=== PATIENT | female | born 2000 | race Caucasian/White ===

== ENCOUNTER → 2021-06-23 09:53 | Outpatient (CLI) | payer OTHER, SELFPAY | PROVIDERS: Visit Provider Nurse Practitioner | DX: Z20.822 Contact with and (suspected) exposure to COVID-19 (principal) | CPT/HCPCS: C9803; U0003; U0005 ==

== ENCOUNTER → 2021-07-21 08:20 | Outpatient (CLI) | payer OTHER, SELFPAY | PROVIDERS: Visit Provider Nurse Practitioner | DX: Z20.822 Contact with and (suspected) exposure to COVID-19 (principal) | CPT/HCPCS: C9803; U0003; U0005 ==

== ENCOUNTER → 2021-10-28 08:18 | Outpatient (CLI) | payer OTHER, SELFPAY | PROVIDERS: Visit Provider Nurse Practitioner | DX: U07.1 COVID-19 (principal) | CPT/HCPCS: C9803; U0003; U0005 ==

== ENCOUNTER → 2021-12-14 16:31 | Outpatient (CLI) | payer BC, SELFPAY ==
[2021-12-14 14:42] LABS: Basophils % 0.7 % (0.1-2.0); Eosinophils # 0.2 K/mm3 (0.0-0.4); Eosinophils % 2.7 % (0.1-12.0); Hematocrit 43.5 % (37.0-47.0); Hemoglobin 14.3 g/dL (12.2-16.2); Lymphocytes # 2.1 K/mm3 (0.7-4.5); Lymphocytes % 33.2 % (10-50); Mean Corpuscular HGB Conc 32.9 g/dL (31.8-35.4); Mean Corpuscular Hemoglobin 30.2 pg (27.0-31.2); Mean Corpuscular Volume 91.7 fl (81-99); Mean Platelet Volume 9.1 fl (7.4-10.4); Monocytes # 0.4 K/mm3 (0.1-1.0); Monocytes % 6.6 % (1.7-9.3); Neutrophils # 3.6 K/mm3 (1.8-7.8); Neutrophils % 56.9 % (37.0-80.0); Platelet Count 331 K/mm3 (142-424); Red Blood Count 4.75 M/mm3 (4.20-5.40); Red Cell Distribution Width 13.1 % (11.5-17.5); White Blood Count 6.4 K/mm3 (4.8-10.8)
[2021-12-14 15:50] LABS: Alanine Aminotransferase 33 U/L (12-78); Albumin Level 4.6 g/dl (3.5-5.0); Albumin/Globulin Ratio 1.6 (1.1-1.8); Alkaline Phosphatase 56 U/L (38-126); Anion Gap 13.2 mEq/L (5-15); Aspartate Amino Transferase 43 U/L (14-36); Bilirubin,Total 0.5 mg/dl (0.2-1.3); Blood Urea Nitrogen 7 mg/dl (7-17); Calcium 9.7 mg/dl (8.4-10.2); Carbon Dioxide 24 mmol/L (22.0-30.0); Chloride 108 mmol/L (98-107); Chol/HDL Ratio 2.1 (1-3.5); Cholesterol 150 mg/dl (140-200); Estimated Glomerular Filt Rate 125 ml/min (>60); GFR (African American) 151 ML/MIN (>60); Globulin 2.8 g/dL (1.3-3.2); Glucose 86 mg/dl (74-100); HDL Cholesterol 71 mg/dl (40-60); Potassium 4.2 mmoL/L (3.5-5.1); Sodium 141 mmol/L (136-145); Total Protein,Serum 7.4 g/dl (6.3-8.2); Triglycerides 73 mg/dl (30-150); VLDL Cholesterol 15 mg/dL (0-40)
[2021-12-14 16:01] LABS: Direct LDL Cholesterol 38.62 mg/dL (100-129)
[2021-12-14 16:05] LABS: Free T4 (Free Thyroxine) 1.28 ng/dl (0.78-2.19)
[2021-12-14 16:07] LABS: 25-OH Vitamin D, Total 36.2 ng/mL (30-100)
[2021-12-14 16:19] LABS: Thyroid Stimulating Hormone 1.78 uIU/mL (0.465-4.68)
== END ==
PROVIDERS: Visit Provider Emergency Medicine
DX: R63.5 Abnormal weight gain (principal); E55.9 Vitamin D deficiency, unspecified
CPT/HCPCS: 80053; 80061; 82306; 84439; 84443; 85025

== ENCOUNTER 2022-08-11 09:38 | Emergency (ER) | payer BC, SELFPAY ==
--- NOTE | 2022-08-11 10:46 | EXP.UTC ---
Discharge Plan Disposition Patient Disposition: Home, Self-Care Condition: Good Prescriptions Prescriptions: New azithromycin [Zithromax] 250 mg tablet 250 mg PO UD DOSE PK Qty: 6 0RF Rx Instructions: Take two (2) tablets today, then one (1) tablet days #2 thru #5 [id number] [Bromfed DM] 2-30-10 mg/5 mL Syrup 5 ml PO Q6H PRN (Reason: Cough) Qty: 240 0RF No Action fluoxetine [Prozac] 20 mg capsule 20 mg PO DAILY Qty: 90 4RF metformin 500 mg tablet 500 mg PO DAILY Qty: 90 3RF Referrals Follow up/Referrals: Edin Ackerman MD [Primary Care Provider] - See instructions Activity Restrictions/Add. Instructions Additional Instructions/Restrictions: Drink plenty of fluids. Take tylenol or ibuprofen for pain or fever. Take the medications as directed. Follow up with your regular doctor. GO TO THE ER FOR ANY WORSENING SYMPTOMS Clinical Impressions Clinical Impression: Pharyngitis Instructions Patient Instructions: Strep Throat, DI for Strep Throat Discharge ED Provider: Jax Mackay [facility] General Stated complaint: Sore throat, strep test Time Seen by Provider: 08/11/22 10:46 History of Present Illness Provider Complaint: She states that for the past 2 weeks she has had a sore throat and sinus congestion. She wants to be checked for strep throat. 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 Related Data Previous Rx's Medication Instructions Recorded fluoxetine 20 mg capsule (Prozac) 20 mg PO DAILY #90 caps 05/13/22 metformin 500 mg tablet 500 mg PO DAILY #90 tabs 05/13/22 azithromycin 250 mg tablet 250 mg PO UD DOSE PK #6 tabs 08/11/22 (Zithromax) [id number]-yfldqitmvrttkhc-FJ 5 ml PO Q6H PRN Cough #240 mL 08/11/22 2 mg-30 mg-10 mg/5 mL oral syrup (Bromfed DM) Allergies Allergy/AdvReac Type Severity Reaction Status Date / Time No Known Allergies Allergy Verified 08/11/22 11:04 [facility] Social History Smoking Status: Never smoker alcohol intake: current substance use type: denies use current occupational status: employed Travel in the last 8 weeks: None ROS Obtained: Yes All systems reviewed & no additional complaints except as documented Constitutional Constitutional: Reports chills and Denies fever(s) Eyes Eyes: Denies eye discharge ENT Ears, Nose, Mouth, and Throat: Reports as per HPI Cardiovascular Cardiovascular: Denies chest pain Respiratory Respiratory: Denies chest congestion and Reports cough Gastrointestinal Gastrointestingal: Reports nausea; Denies abdominal pain, constipation, cramping, diarrhea or vomiting Musculoskeletal Musculoskeletal: Denies arthralgias Integumentary/Breasts Skin/Breast: Denies rash Neurologic Neurologic: Denies paresthesias Physical Exam General General appearance: alert and in no apparent distress Head Head exam: atraumatic, normocephalic and normal inspection Eye Eye exam: Present normal appearance, PERRL and EOMI ENT ENT exam: Present mucous membranes moist and normal external ear exam Expanded ENT Exam TM/Canal exam: Bilateral TM: erythema and bulging Nose exam: Absent sinus tenderness Mouth exam: Present normal external inspection; Absent drooling Teeth exam: Present normal inspection Throat exam: Present tonsillar erythema, tonsillomegaly and tonsillar exudate Neck Neck exam: Present normal inspection, full ROM and trachea midline; Absent tenderness, meningismus or lymphadenopathy Chest Chest inspection: Present normal inspection and symmetric chest wall rise; Absent tenderness Respiratory Respiratory exam: Present normal lung sounds bilaterally; Absent respiratory distress, wheezes or stridor Cardiovascular Cardiovascular exam: Present regular rate and normal rhythm; Absent systolic murmur or diastolic murmur Abdominal Exam Abdominal exam: Present soft and normal bowel sounds; Absent dis
[2022-08-11 11:03] VITALS: BP 122/73; PULSE 72; RESP 18; TEMP 36.7; O2SAT 99; BMI 24.2
[2022-08-11 11:05] LABS: UTC Strep Screen (Rapid) Negative (Negative)
[2022-08-11 11:17] LABS: Adenovirus,PCR Not Detected (NotDetected); Bordetella Pertussis Not Detected (NotDetected); Chlamydophila Pneumoniae, PCR Not Detected (NotDetected); Coronavirus 19, PCR Not Detected (NotDetected); Coronavirus 229E Not Detected (NotDetected); Coronavirus NL63 Not Detected (NotDetected); Coronavirus OC43 Not Detected (NotDetected); Coronovirus HKU1,PCR Not Detected (NotDetected); Human Metapneumovirus Not Detected (NotDetected); Influenza A, PCR Not Detected (NotDetected); Influenza AH1, 2009 Not Detected (NotDetected); Influenza AH1, PCR Not Detected (NotDetected); Influenza AH3,PCR Not Detected (NotDetected); Influenza B, PCR Not Detected (NotDetected); Mycoplasma Pneumoniae, PCR Not Detected (NotDetected); Parainfluenza 1, PCR Not Detected (NotDetected); Parainfluenza 2, PCR Not Detected (NotDetected); Parainfluenza 3, PCR Not Detected (NotDetected); Parainfluenza 4, PCR Not Detected (NotDetected); Rhinovirus/Enterovirus Not Detected (NotDetected)
[2022-08-11 11:45] VITALS: BP 122/73; PULSE 72; RESP 18; TEMP 36.7
[2022-08-11 19:41] LABS: Respiratory Syncytial Virus Detected (NotDetected)
== END 2022-08-11 11:46 | disposition home or self-care (01) ==
PROVIDERS: Emergency Provider Nurse Practitioner Family; PCP Emergency Medicine
DX: J02.9 Acute pharyngitis, unspecified (principal); R09.89 Other specified symptoms and signs involving the circulatory and respiratory systems; B34.8 Other viral infections of unspecified site
CPT/HCPCS: 87581; 87632; 87798; 87880; 99212; C9803; G0463; U0003; U0005

== ENCOUNTER 2022-08-22 11:42 | Emergency (ER) | payer BC, SELFPAY ==
[2022-08-22 12:57] VITALS: BP 0/0; PULSE 0; RESP 0; TEMP -17.7; TEMP 0
== END 2022-08-22 12:58 | disposition left against medical advice (07) ==
LOC: UTC 11:44
PROVIDERS: Emergency Provider Nurse Practitioner Family; PCP Emergency Medicine
DX: Z03.89 Encounter for observation for other suspected diseases and conditions ruled out (principal); Z79.84 Long term (current) use of oral hypoglycemic drugs; Z79.899 Other long term (current) drug therapy; Z53.21 Procedure and treatment not carried out due to patient leaving prior to being seen by health care provider

== ENCOUNTER 2022-10-15 11:35 | Emergency (ER) | payer BC, SELFPAY ==
--- NOTE | 2022-10-15 11:39 | EXP.UTC ---
Discharge Plan Disposition Patient Disposition: Home, Self-Care Condition: Good Prescriptions Prescriptions: New prednisone 10 mg tablet 10 mg PO BID 3 Days Qty: 6 0RF amoxicillin [amoxicillin] 500 mg tablet 500 mg PO TID 10 Days Qty: 30 0RF fmjlwthlolijdjf-kdmikliwx-JK [Bromfed DM] 2-30-10 mg/5 mL Syrup 5 ml PO Q6H PRN (Reason: Cough) Qty: 240 0RF No Action fluoxetine [Prozac] 20 mg capsule 20 mg PO DAILY Qty: 90 4RF metformin 500 mg tablet 500 mg PO DAILY Qty: 90 3RF azithromycin [Zithromax] 250 mg tablet 250 mg PO UD DOSE PK Qty: 6 0RF Rx Instructions: Take two (2) tablets today, then one (1) tablet days #2 thru #5 rcalpukvyzihodz-tqzeiqatp-CV [Bromfed DM] 2-30-10 mg/5 mL Syrup 5 ml PO Q6H PRN (Reason: Cough) Qty: 240 0RF Referrals Follow up/Referrals: Edin Ackerman MD [Primary Care Provider] - See instructions Activity Restrictions/Add. Instructions Additional Instructions/Restrictions: Drink plenty of fluids. Take tylenol or ibuprofen for pain or fever. Take the medications as directed. Follow up with your regular doctor. GO TO THE ER FOR ANY WORSENING SYMPTOMS Clinical Impressions Clinical Impression: Pharyngitis Instructions Patient Instructions: DI for Pharyngitis/Tonsillopharyngitis -- Adult Discharge ED Provider: Jax Mackay [facility] General Stated complaint: Sore throat, bodyaches Time Seen by Provider: 10/15/22 11:39 History of Present Illness Provider Complaint: She states that for the past 5 days she has had a sore throat, dry cough, ear pain and she has felt bad. Related Data Previous Rx's Medication Instructions Recorded fluoxetine 20 mg capsule (Prozac) 20 mg PO DAILY #90 caps 05/13/22 metformin 500 mg tablet 500 mg PO DAILY #90 tabs 05/13/22 azithromycin 250 mg tablet 250 mg PO UD DOSE PK #6 tabs 08/11/22 (Zithromax) rgdmygjuidxzxop-ztygacbqrgjreou-IF 5 ml PO Q6H PRN Cough #240 mL 08/11/22 2 mg-30 mg-10 mg/5 mL oral syrup (Bromfed DM) amoxicillin 500 mg tablet 500 mg PO TID 10 days #30 tabs 10/15/22 hpoohoklrooupis-hbsvnyexoqbitsl-QL 5 ml PO Q6H PRN Cough #240 mL 10/15/22 2 mg-30 mg-10 mg/5 mL oral syrup (Bromfed DM) prednisone 10 mg tablet 10 mg PO BID 3 days #6 tabs 10/15/22 Allergies Allergy/AdvReac Type Severity Reaction Status Date / Time No Known Allergies Allergy Verified 08/11/22 11:04 [facility] Disclaimer: The information contained in this section may have been updated after the patient was seen, as this information can be updated by other users. Medical History Anxiety Depression Migraine Social History Smoking Status: Never smoker alcohol intake: current substance use type: denies use current occupational status: employed Travel in the last 8 weeks: None ROS Obtained: Yes All systems reviewed & no additional complaints except as documented Constitutional Constitutional: Reports chills and Reports fever(s) Eyes Eyes: Denies eye discharge ENT Ears, Nose, Mouth, and Throat: Reports as per HPI Cardiovascular Cardiovascular: Denies chest pain Respiratory Respiratory: Denies chest congestion and Reports cough Gastrointestinal Gastrointestingal: Reports nausea; Denies abdominal pain, constipation, cramping, diarrhea or vomiting Musculoskeletal Musculoskeletal: Denies arthralgias Integumentary/Breasts Skin/Breast: Denies rash Neurologic Neurologic: Denies paresthesias Physical Exam General General appearance: alert and in no apparent distress Head Head exam: atraumatic, normocephalic and normal inspection Eye Eye exam: Present normal appearance, PERRL and EOMI ENT ENT exam: Present mucous membranes moist and normal external ear exam Expanded ENT Exam TM/Canal exam: Bilateral TM: erythema and bulging Nose exam: Absent sinus tenderness Mouth exam: Present no
[2022-10-15 12:05] VITALS: BP 137/68; PULSE 70; RESP 21; TEMP 37.2; O2SAT 97; BMI 25.8
[2022-10-15 12:40] LABS: UTC Influenza A Antigen Negative (Negative); UTC Strep Screen (Rapid) Negative (Negative)
[2022-10-15 12:41] LABS: UTC Influenza B Antigen Negative (Negative)
[2022-10-15 13:05] VITALS: BP 137/68; PULSE 70; RESP 21; TEMP 37.2; O2SAT 97
[2022-10-15 13:45] LABS: Monoscreen (Rapid) Negative (Negative)
== END 2022-10-15 13:15 | disposition home or self-care (01) ==
PROVIDERS: Emergency Provider Nurse Practitioner Family; PCP Emergency Medicine
DX: J02.9 Acute pharyngitis, unspecified (principal); R52 Pain, unspecified; R05.8 Other specified cough
CPT/HCPCS: 86318; 87804; 87880; 99212; 99213; C9803; G0463; U0003; U0005

== ENCOUNTER 2022-12-07 12:55 | Emergency (ER) | payer BC, SELFPAY ==
[2022-12-07 13:00] VITALS: BP 139/91; PULSE 91; RESP 20; TEMP 36.8; O2SAT 97; BMI 27.6
--- NOTE | 2022-12-07 13:13 | EXP.UTC ---
Discharge Plan Disposition Patient Disposition: Home, Self-Care Condition: Good Prescriptions Prescriptions: New penicillin V potassium 500 mg tablet 500 mg PO BID Qty: 20 0RF No Action metformin 500 mg tablet 500 mg PO DAILY Qty: 90 3RF fluoxetine [Prozac] 20 mg capsule 20 mg PO DAILY Referrals Follow up/Referrals: Edin Ackerman MD [Primary Care Provider] - See instructions Activity Restrictions/Add. Instructions Additional Instructions/Restrictions: *Monitor Temp, Over the counter Motrin or Tylenol as directed/as needed Tylenol every 4 hours and Motrin every 6 hours (as long as your family doctor has told you that you can take it) for fever or pain. and straight to ER if unable to lower temp less than 101.0 after medication given *Warm salt water gargles may help to soothe the throat *Throat Lozenges? *Warm fluids like tea with honey may help to soothe the throat? *Sleep elevated *Humidifier/Vaporizer *If you did not take Penicillin shot or was unable to, start taking antibiotic immediately and make sure that you take it for the FULL length of time although you should start to feel better in 24-48 hours *change toothbrush and toothpaste 24-48 hours after starting to take antibiotics so you do not reinfect yourself Monitor Temp. Tylenol and/or Ibuprofen as needed. ER if fever is no less than 101 despite alternating Tylenol and Ibuprofen * Encourage fluids, water, Gatorade, powerade, pedialyte if /toddler/or child *Cold fluids, popsicles and ice cream may feel good on his throat Follow up IMMEDIATELY for new or worsening symptoms or no Noticeable improvement over the next 48-72 hours. 911 for difficulty breathing or swallowing Clinical Impressions Clinical Impression: Strep throat Stand Alone Forms Stand Alone Forms: Work/School Release Instructions Patient Instructions: DI for Strep Throat Discharge ED Provider: Neva Reyes [facility] [place] HPI General Stated complaint: Sore throat, loss of voice, bodyaches Time Seen by Provider: 12/07/22 13:13 History of Present Illness Provider Complaint: Patient states that she woke up with sore throat and loss of voice State that hurts when she swallows Related Data Home Medications Medication Instructions Recorded Confirmed fluoxetine 20 mg capsule (Prozac) 20 mg PO DAILY Depression 12/07/22 12/07/22 Previous Rx's Medication Instructions Recorded metformin 500 mg tablet 500 mg PO DAILY #90 tabs 05/13/22 penicillin V potassium 500 mg 500 mg PO BID #20 tabs 12/07/22 tablet Allergies Allergy/AdvReac Type Severity Reaction Status Date / Time No Known Allergies Allergy Verified 12/07/22 13:15 [facility] Disclaimer: The information contained in this section may have been updated after the patient was seen, as this information can be updated by other users. Medical History Anxiety Depression Migraine Social History Smoking Status: Never smoker alcohol intake: current substance use type: denies use current occupational status: employed Travel in the last 8 weeks: None ROS Obtained: Yes All systems reviewed & no additional complaints except as documented and Yes Systems reviewed as appropriate & no additional complaints except as documented Constitutional Constitutional: Reports system reviewed and no additional complaints, except as documented and Reports as per HPI ENT Ears, Nose, Mouth, and Throat: Reports system reviewed and no additional complaints, except as documented, Reports as per HPI and Reports sore throat Cardiovascular Cardiovascular: Reports system reviewed and no additional complaints, except as documented and Reports as per HPI Respiratory Respiratory: Reports system reviewed and no additional complaints, except as documented and Reports as per HPI Gastrointestinal Gastr
[2022-12-07 13:14] LABS: UTC Strep Screen (Rapid) Positive (Negative)
[2022-12-07 13:46] VITALS: BP 139/91; PULSE 91; RESP 20; TEMP 36.8; O2SAT 97
== END 2022-12-07 13:45 | disposition home or self-care (01) ==
PROVIDERS: Emergency Provider Nurse Practitioner; PCP Emergency Medicine
DX: J02.0 Streptococcal pharyngitis (principal); M79.18 Myalgia, other site
CPT/HCPCS: 87880; 99212; 99214; G0463

== ENCOUNTER 2022-12-27 09:19 | Emergency (ER) | payer BC, SELFPAY ==
[2022-12-27 09:20] VITALS: BP 132/87; PULSE 92; RESP 20; TEMP 36.6; O2SAT 100; BMI 27.8
--- NOTE | 2022-12-27 09:41 | EXP.UTC ---
Discharge Plan Disposition Patient Disposition: Home, Self-Care Condition: Good Prescriptions Prescriptions: New fluticasone propionate [Flonase Allergy Relief] 50 mcg/actuation spray,suspension 1 spray intranasal DAILY Qty: 16 0RF Rx Instructions: administer into each nostril Referrals Follow up/Referrals: Edin Ackerman MD [Primary Care Provider] - See instructions Activity Restrictions/Add. Instructions Additional Instructions/Restrictions: *Monitor Temp, Over the counter Motrin or Tylenol as directed/as needed Tylenol every 4 hours and Motrin every 6 hours (as long as your family doctor has told you that you can take it) for fever or pain. and straight to ER if unable to lower temp less than 101.0 after medication given *Warm salt water gargles may help to soothe the throat *Throat Lozenges? *Warm fluids like tea with honey may help to soothe the throat? *Sleep elevated *Humidifier/Vaporizer Your throat swab was sent for culture. Those results are typically sent to your primary care. Be sure to follow up in 2-3 days with your family doctor/primary care physician if no improvement so they can review those result and treat if necessary. If you don?t have a primary care doctor, I recommend you get one but in the mean time, you will have to return to a walk in clinic Follow up IMMEDIATELY for new or worsening symptoms or no Noticeable improvement over the next 48-72 hours. 911 for difficulty breathing or swallowing Clinical Impressions Clinical Impression: Sore throat (viral) Stand Alone Forms Stand Alone Forms: Work/School Release Instructions Patient Instructions: Sore Throat Discharge ED Provider: Neva Reyes [facility] [place] HPI General Stated complaint: Sore throat Mode of Arrival: Ambulatory Source of Information: Patient Limitations: No Limitations Time Seen by Provider: 12/27/22 09:41 Description of Symptoms (Recalled from Triage Doc. by RN): Tested positive for strep 3 wks finished pen, and no relief HEENT Symptoms (Recalled from RN notes): Yes Resp Symptoms (Recalled from RN notes): No Skin Symptoms (Recalled from RN notes): No MS Symptoms (Recalled from RN notes): No Functional Status (Recalled from RN notes): n/a History of Present Illness Provider Complaint: Patient states that she was seen and treated for strep throat 3 weeks ago and has finished all her Penicillin but still having sore throat and hurting when she swallows States that she doesnt feel like it has helped Related Data Previous Rx's Medication Instructions Recorded fluticasone propionate 50 1 spray intranasal DAILY #16 grams 12/27/22 mcg/actuation nasal spray,suspension (Flonase Allergy Relief) Allergies Allergy/AdvReac Type Severity Reaction Status Date / Time No Known Allergies Allergy Verified 12/27/22 09:39 Worker's Comp Is this a Worker's Comp case?: No [facility] Disclaimer: The information contained in this section may have been updated after the patient was seen, as this information can be updated by other users. Medical History Anxiety Depression Migraine Social History Smoking Status: Never smoker alcohol intake: current substance use type: denies use current occupational status: employed Travel in the last 8 weeks: None ROS Obtained: Yes All systems reviewed & no additional complaints except as documented and Yes Systems reviewed as appropriate & no additional complaints except as documented ENT Ears, Nose, Mouth, and Throat: Reports system reviewed and no additional complaints, except as documented, Reports as per HPI, Denies nasal congestion, Denies nasal discharge and Reports sore throat Cardiovascular Cardiovascular: Reports system reviewed and no additional complaints, except as documented and Reports as per HPI Respiratory Respiratory: Reports s
[2022-12-27 10:00] LABS: UTC Strep Screen (Rapid) Negative (Negative)
[2022-12-27 10:16] VITALS: BP 132/87; PULSE 92; RESP 20; TEMP 36.6; O2SAT 100
== END 2022-12-27 10:15 | disposition home or self-care (01) ==
PROVIDERS: Emergency Provider Nurse Practitioner; PCP Emergency Medicine
DX: J02.8 Acute pharyngitis due to other specified organisms (principal); B34.9 Viral infection, unspecified
CPT/HCPCS: 87880; 99212; 99214; G0463

== ENCOUNTER 2023-06-24 16:51 | Emergency (ER) | payer BC, SELFPAY ==
--- NOTE | 2023-06-24 16:55 | EXP.UTC ---
Discharge Plan Disposition Patient Disposition: Home, Self-Care Condition: Good Prescriptions Prescriptions: No Action fluticasone propionate [Flonase Allergy Relief] 50 mcg/actuation spray,suspension 1 spray intranasal DAILY Qty: 16 0RF Rx Instructions: administer into each nostril Referrals Follow up/Referrals: Edin Ackerman MD [Primary Care Provider] - See instructions Clinical Impressions Clinical Impression: Malaise Instructions Patient Instructions: DI for COVID-19 (Suspected or Confirmed ) Discharge ED Provider: Slime Villalobos [facility] [place] HPI General Stated complaint: FEVER CHILLS SORE THROAT WANTS covid TEST Time Seen by Provider: 06/24/23 17:19 Description of Symptoms (Recalled from Triage Doc. by RN): Headache, fever, sore throat, chills, muscle soreness since last night. No fever. History of Present Illness Provider Complaint: Headache, fever, sore throat, chills, muscle soreness since last night. No fever. Onset (ago): day(s) Relieving factors: none Exacerbating factors: none Associated symptoms: headaches and malaise Treatments prior to arrival: none Related Data Previous Rx's Medication Instructions Recorded fluticasone propionate 50 1 spray intranasal DAILY #16 grams 12/27/22 mcg/actuation nasal spray,suspension (Flonase Allergy Relief) Allergies Allergy/AdvReac Type Severity Reaction Status Date / Time No Known Allergies Allergy Verified 12/27/22 09:39 [facility] Disclaimer: The information contained in this section may have been updated after the patient was seen, as this information can be updated by other users. Medical History Anxiety Depression Migraine Social History Smoking Status: Never smoker alcohol intake: current substance use type: denies use current occupational status: employed Travel in the last 8 weeks: None ROS Obtained: Yes All systems reviewed & no additional complaints except as documented and Yes Systems reviewed as appropriate & no additional complaints except as documented Constitutional Constitutional: Reports body ache, Reports chills, Reports fatigue, Reports headache(s) and Reports malaise ENT Ears, Nose, Mouth, and Throat: Reports system reviewed and no additional complaints, except as documented, Reports as per HPI, Reports headache(s), Denies nasal congestion, Denies nasal discharge and Reports sore throat Cardiovascular Cardiovascular: Reports system reviewed and no additional complaints, except as documented and Reports as per HPI Respiratory Respiratory: Reports system reviewed and no additional complaints, except as documented and Reports as per HPI Gastrointestinal Gastrointestingal: Reports system reviewed and no additional complaints, except as documented and as per HPI Genitourinary Female Genitourinary: Reports system reviewed and no additional complaints, except as documented and Reports as per HPI Neurologic Neurologic: Reports headache(s) Endocrine Endocrine: Reports fatigue Physical Exam General General appearance: alert and in no apparent distress Head Head exam: atraumatic, normocephalic and normal inspection Eye Eye exam: Present normal appearance, PERRL and EOMI ENT ENT exam: Present normal exam, normal oropharynx, mucous membranes moist, TM's normal bilaterally and normal external ear exam Neck Neck exam: Present normal inspection, full ROM and trachea midline; Absent meningismus or lymphadenopathy Chest Chest inspection: Present normal inspection and symmetric chest wall rise; Absent tenderness Respiratory Respiratory exam: Present normal lung sounds bilaterally; Absent respiratory distress Cardiovascular Cardiovascular exam: Present regular rate and normal rhythm; Absent JVD Abdominal Exam Abdominal exam: Present soft and normal bowel sounds; Absent distention, tenderness or guarding Ex
[2023-06-24 17:00] VITALS: BP 125/70; PULSE 127; RESP 22; TEMP 36.8; O2SAT 96; BMI 28.2
[2023-06-24 17:15] LABS: UTC Strep Screen (Rapid) Negative (Negative)
[2023-06-24 17:36] LABS: UTC Influenza A Antigen Negative (Negative)
[2023-06-24 17:37] VITALS: BP 125/70; PULSE 127; RESP 22; TEMP 36.8; O2SAT 96
[2023-06-24 17:37] LABS: UTC Influenza B Antigen Negative (Negative)
== END 2023-06-24 17:40 | disposition home or self-care (01) ==
PROVIDERS: Emergency Provider Physician Assistant; PCP Emergency Medicine
DX: R51.9 Headache, unspecified (principal); F41.9 Anxiety disorder, unspecified; F32.A Depression, unspecified
CPT/HCPCS: 87635; 87804; 87880; 99212; 99213; G0463

== ENCOUNTER 2023-08-22 17:02 | Emergency (ER) | payer BC, SELFPAY ==
[2023-08-22 17:40] VITALS: BP 140/84; PULSE 102; RESP 22; TEMP 37.1; O2SAT 99; BMI 28.7
--- NOTE | 2023-08-22 17:47 | EXP.UTC ---
Discharge Plan Disposition Patient Disposition: Home, Self-Care Condition: Good Prescriptions Prescriptions: No Action fluticasone propionate [Flonase Allergy Relief] 50 mcg/actuation spray,suspension 1 spray intranasal DAILY Qty: 16 0RF Rx Instructions: administer into each nostril Referrals Follow up/Referrals: Edin Ackeramn MD [Primary Care Provider] - See instructions Activity Restrictions/Add. Instructions Additional Instructions/Restrictions: *Monitor Temp, Over the counter Motrin or Tylenol as directed/as needed Tylenol every 4 hours and Motrin every 6 hours (as long as your family doctor has told you that you can take it) for fever or pain. and straight to ER if unable to lower temp less than 101.0 after medication given *Warm salt water gargles may help to soothe the throat *Throat Lozenges? *Warm fluids like tea with honey may help to soothe the throat? *Sleep elevated *Humidifier/Vaporizer Follow up IMMEDIATELY for new or worsening symptoms or no Noticeable improvement over the next 48-72 hours. 911 for difficulty breathing or swallowing You were tested for today for with COVID19 your test result should be back in the next 24hrs You may check your results on the [facility] If your COVID result is positive you must Quarantine for 5 days Clinical Impressions Clinical Impression: Viral syndrome Stand Alone Forms Stand Alone Forms: Work/School Release Instructions Patient Instructions: Sore Throat, DI for Viral Syndrome Discharge ED Provider: Neva Reyes [facility] [place] General Stated complaint: sore throat, sada Time Seen by Provider: 08/22/23 17:53 History of Present Illness Provider Complaint: Patient states that she started feeling bad last night with sore throat, bodyaches, chills and headache States today she wasnt feeling any better so she came in to get tested worried because she was having COVID symptoms Related Data Previous Rx's Medication Instructions Recorded fluticasone propionate 50 1 spray intranasal DAILY #16 grams 12/27/22 mcg/actuation nasal spray,suspension (Flonase Allergy Relief) Allergies Allergy/AdvReac Type Severity Reaction Status Date / Time No Known Allergies Allergy Verified 12/27/22 09:39 [facility] Disclaimer: The information contained in this section may have been updated after the patient was seen, as this information can be updated by other users. Medical History Anxiety Depression Migraine Social History Smoking Status: Never smoker alcohol intake: current substance use type: denies use current occupational status: employed Travel in the last 8 weeks: None ROS Obtained: Yes All systems reviewed & no additional complaints except as documented and Yes Systems reviewed as appropriate & no additional complaints except as documented Constitutional Constitutional: Reports system reviewed and no additional complaints, except as documented, Reports as per HPI, Reports body ache, Reports chills and Reports headache(s) ENT Ears, Nose, Mouth, and Throat: Reports system reviewed and no additional complaints, except as documented, Reports as per HPI, Reports headache(s), Reports nasal congestion and Reports sore throat Cardiovascular Cardiovascular: Reports system reviewed and no additional complaints, except as documented and Reports as per HPI Respiratory Respiratory: Reports system reviewed and no additional complaints, except as documented and Reports as per HPI Gastrointestinal Gastrointestingal: Reports system reviewed and no additional complaints, except as documented Musculoskeletal Musculoskeletal: Reports system reviewed and no additional complaints, except as documented and Reports as per HPI Neurologic Neurologic: Reports headache(s) Physical Exam General General a
[2023-08-22 18:00] VITALS: BP 140/84; PULSE 102; RESP 22; TEMP 37.1; O2SAT 99
== END 2023-08-22 18:04 | disposition home or self-care (01) ==
PROVIDERS: Emergency Provider Nurse Practitioner; PCP Emergency Medicine
DX: R07.0 Pain in throat (principal); R09.81 Nasal congestion; R51.9 Headache, unspecified; R68.83 Chills (without fever); B34.9 Viral infection, unspecified
CPT/HCPCS: 87635; 99212; 99213; G0463

== ENCOUNTER 2024-12-24 06:08 | Emergency (ER) | payer BC, SELFPAY ==
--- NOTE | 2024-12-24 06:14 | ED_ITS ---
Discharge Plan Disposition Patient Disposition: Home, Self-Care Condition: Good Prescriptions Prescriptions: New promethazine 25 mg tablet 25 mg PO Q6H PRN (Reason: nausea and vomiting) Qty: 12 1RF No Action PNV no.[id number] acid 28 mg iron- 800 mcg tablet 1 tab PO DAILY Qty: 90 3RF fluoxetine 20 mg capsule See Rx Instructions .ROUTE .COMPLEX Qty: 90 0RF Dose Instruction: TAKE 1 CAPSULE BY MOUTH DAILY Rx Instructions: TAKE 1 CAPSULE BY MOUTH DAILY needs an appt before anymore refills fluticasone propionate [Flonase Allergy Relief] 50 mcg/actuation spray,suspension 1 spray intranasal DAILY Qty: 16 0RF Rx Instructions: administer into each nostril Referrals Follow up/Referrals: Slime Villalobos PA [Primary Care Provider] - See instructions Activity Restrictions/Add. Instructions Additional Instructions/Restrictions: You were evaluated in the emergency department today. At this time, we feel you likely have gastroenteritis. Please chart picker your prescription for Phenergan and take as needed for nausea and vomiting. Eat a bland diet until your symptoms are resolved, such as bananas, rice, applesauce, or toast. Take Tylenol and ibuprofen at home as needed for pain/fever. Make sure you stay hydrated. Follow-up with your primary care provider for reassessment. Return to the emergency department for new or worsening symptoms. Clinical Impressions Clinical Impression: Nausea & vomiting Stand Alone Forms Stand Alone Forms: Work/School Release Instructions Patient Instructions: DI for Diarrhea and Traveler's Diarrhea -- Adult, DI for Nausea -- Adult, Nausea and Vomiting-Adult Print Language Print Language: Khmer Discharge ED Provider: Sandro Munoz General Adult HPI <Sandro Munoz MD - Last Filed: 12/24/24 06:55> General Chief complaint: Abdominal Pain Stated complaint: abd pain, vomiting Time Seen by Provider: 12/24/24 06:10 History of Present Illness HPI narrative: 23-year-old female who reports being otherwise healthy only on daily fluoxetine with no known drug allergies presents to the ER with complaints of nausea and vomiting for the last 4 hours. She states she has had constant intractable vomiting. Nonbloody, nonbilious. She states she has generalized abdominal discomfort without any local areas of pain. She reports she has not taken any medications prior to arrival but cannot keep down even a sip of water. She denies hematuria or dysuria. She is 4 months and has not yet had her first period. She is actively breast-feeding. She is worried about being dehydrated. No history of any abdominal surgeries. No fevers, chills, cough, congestion, diarrhea, constipation, or any other associated symptoms. Related Data Previous Rx's ?Medication ?Instructions ?Recorded fluticasone propionate 50 1 spray intranasal DAILY #16 grams 12/27/22 mcg/actuation nasal spray,suspension (Flonase Allergy Relief) vitamins no.121-iron 28 1 tab PO DAILY #90 tabs 09/08/23 mg-folic acid 800 mcg tablet fluoxetine 20 mg capsule See Rx Instructions .Route 09/20/24 .COMPLEX #90 caps promethazine 25 mg tablet 25 mg PO Q6H PRN nausea and 12/24/24 vomiting #12 tabs Allergies Allergy/AdvReac Type Severity Reaction Status Date / Time No Known Allergies Allergy Verified 12/27/22 09:39 [facility] <Sandro Munoz MD - Last Filed: 12/24/24 06:55> [facility] Disclaimer: The information contained in this section may have been updated after the patient was seen, as this information can be updated by other users. Medical History Anxiety Depression Migraine Social History Smoking Status: Never smoker alcohol intake: current alcohol intake frequency: a few times a week substance use type: denies use current occupational status: employed Travel in the last 8 weeks: None Have you lived/traveled outside US in past 30 days?: No Contact w/someone who lives/traveled outside US past 30 days?: No Exposure to someone with infectious disease in past 14 days?: No Do you have a fever (greater than 100.4 F or 38 C)?: No Have you tested positive for COVID-19: No Exposed to someone with COVID-19 in past 14 days?: No Do you have a sore throat?: No Do you have a cough?: No Do you have any weakness?: No Do you have any diarrhea?: No Are you experiencing any unusual bleeding?: No Do you have any muscle aches/pain?: No Do you have any abdominal pain?: Yes Are you experiencing loss of taste or smell?: No Other Medical History Have you received the Pneumonia Vaccine: No <Sandro Munoz MD - Last Filed: 12/24/24 06:55> ROS Obtained: Yes Systems reviewed as appropriate & no additional complaints except as documented Per HPI Physical Exam <Sandro Munoz MD - Last Filed: 12/24/24 06:55> General General appearance: alert and in no apparent distress Comment: Appears ill but not in extremis Head Head exam: atraumatic and normocephalic Eye Eye exam: Present PERRL and EOMI ENT ENT exam: Present mucous membranes moist Neck Neck exam: Present normal inspection and full ROM Chest Chest inspection: Present symmetric chest wall rise Respiratory Respiratory exam: Present normal lung sounds bilaterally; Absent respiratory distress, wheezes or stridor Cardiovascular Cardiovascular exam: Present regular rate and normal rhythm Abdominal Exam Abdominal exam: Present soft; Absent distention, tenderness, guarding or rebound Extremities Exam Extremities exam: Present full ROM Neurological Exam Neurological exam: Present alert and oriented X3; Absent motor sensory deficit Psychiatric Psychiatric exam: Present normal affect and normal mood Skin Skin exam: Present warm and dry Medical Decision Making <Sandro Munoz MD - Last Filed: 12/24/24 06:55> Medical Records Medical records reviewed: Yes I reviewed the patient's medical records. Screening: Per USPSTF and CDC recommendations, given the prevalence of disease in our region, it is our hospital?s policy to screen for HIV and viral Hepatitis for all patients aged 18 and over and those with ongoing risk factors. MR Comment: Most recent visit within our system was in September 2023. Prozac was refilled at that time. Ignacio Inquiry Pt receiving controlled substance: No Vital Signs: 12/24/24 06:18 Temperature 98.8 F Temperature Source Oral Pulse Rate [Right] 81 Respiratory Rate 20 Blood Pressure [Right Arm] 138/100 H Blood Pressure Mean [Right Arm] 112 02 Sat by Pulse Oximetry 98 Oxygen Delivery Method Room Air Lab Data Lab Results 12/24/24 06:25: WBC 11.0 H, RBC 4.82, Hgb 13.9, Hct 41.2, MCV 85.5, MCH 28.8, MCHC 33.7, RDW 12.9, Plt Count 292, MPV 10.0, Neut % (Auto) 80.9 H, Lymph % (Auto) 13.3, Logan % (Auto) 3.9, Eos % (Auto) 1.0, Baso % (Auto) 0.4, Neut # (Auto) 8.9 H, Lymph # (Auto) 1.5, Logan # (Auto) 0.4, Eos # (Auto) 0.1, Baso # (Auto) 0.0, Sodium 141, Potassium 3.8, Chloride 107, Carbon Dioxide 25, Anion Gap 12.8, BUN 17, Creatinine 0.60, Estimated Creat Clear 174, Estimated GFR 122, Est GFR ( Amer) 147, Glucose 126 H, Lactate 0.9, Calcium 11.0 H, Total Bilirubin 0.6, AST 29, ALT 25, Alkaline Phosphatase 63, Total Protein 8.3 H, A lbumin 5.2 H, Globulin 3.1, Albumin/Globulin Ratio 1.7, Lipase 116, Serum HCG, Qual Negative, HCV Ab TANMAY w/Rflx PCR Qn Negative, HIV Ag/Ab Combo Qual Negative 12/24/24 06:25 12/24/24 06:25 Orders (Tests/Meds): ED MEDICATIONS Discontinued Medications Generic Name Dose Route Start Last Admin Trade Name Freq PRN Reason Stop Dose Admin Lactated Ringer's 1,000 mls @ 999 mls/hr 12/24/24 06:13 12/24/24 06:22 Lactated Ringer's 1000 Ml Bag IV 12/24/24 07:13 999 mls/hr .Q1H1M ONE Administration Ondansetron HCl 4 mg 12/24/24 06:13 12/24/24 06:22 Ondansetron 4mg/2ml Vial IV 12/24/24 06:14 4 mg ONCE ONE Administration Promethazine HCl 12.5 mg 12/24/24 06:30 12/24/24 06:33 Promethazine Hcl 25mg/Ml 1ml Vial IV 12/24/24 06:31 12.5 mg ONCE ONE Administration Sodium Chloride 25 ml 12/24/24 06:30 12/24/24 06:33 Sodium Chloride 0.9% 25ml Bag IV 12/24/24 06:31 25 ml ONCE ONE Administration ORDERS Category Date Time Status CBC w/Auto Diff [Complete Blood Count Auto Diff] Stat Lab 12/24/24 06:25 Completed CMP [Comprehensive Metabolic Panel] Stat Lab 12/24/24 06:25 Completed HCG Qualitative, Serum Stat Lab 12/24/24 06:25 Completed HIV Combo Stat Lab 12/24/24 06:25 Completed Hepatitis C Ab Qual. W/ RFX Stat Lab 12/24/24 06:25 Completed Lactic Acid Stat Lab 12/24/24 06:25 Completed Lipase Stat Lab 12/24/24 06:25 Completed Medical Decision Narrative: In summary, this 23-year-old female 4 months presents to the emergency department today with nausea, vomiting. On initial evaluation patient is hemodynamically stable, afebrile, she appears ill and uncomfortable but not in extremis, abdominal exam is benign without any tenderness, cardiopulmonary exam benign, remainder of exam reassuring. Differential diagnosis includes but is not limited to viral syndrome, electrolyte abnormality, dehydration, I considered the possibility of intra-abdominal pathology like bowel obstruction, appendicitis, cholecystitis but have extremely low suspicion for these since patient does not have any abdominal pain or tenderness. She also has no urinary symptoms that would make me concerned for UTI or pyelo. Based on these concerns, I ordered serum labs initially including hCG. Patient is receiving IV fluids and Zofran for initial treatment and symptomatic management. Labs reviewed by me demonstrate leukocytosis WBC 11, no anemia, normal platelets, CMP nonactionable at this time. Patient does not have evidence of kidney dysfunction. Lipase normal at 116 reassuring against pancreatitis, lactic normal at 0.9. Patient was still having emesis after initial interventions. Phenergan administered for additional symptomatic management. Patient handed off to Dr. Powell for continued management and disposition. <Nara Powell, DO - Last Filed: 12/24/24 08:10> Vital Signs: 12/24/24 06:18 Temperature 98.8 F Temperature Source Oral Pulse Rate [Right] 81 Respiratory Rate 20 Blood Pressure [Right Arm] 138/100 H Blood Pressure Mean [Right Arm] 112 02 Sat by Pulse Oximetry 98 Oxygen Delivery Method Room Air Lab Data Lab Results 12/24/24 06:25: WBC 11.0 H, RBC 4.82, Hgb 13.9, Hct 41.2, MCV 85.5, MCH 28.8, MCHC 33.7, RDW 12.9, Plt Count 292, MPV 10.0, Neut % (Auto) 80.9 H, Lymph % (Auto) 13.3, Logan % (Auto) 3.9, Eos % (Auto) 1.0, Baso % (Auto) 0.4, Neut # (Auto) 8.9 H, Lymph # (Auto) 1.5, Logan # (Auto) 0.4, Eos # (Auto) 0.1, Baso # (Auto) 0.0, Sodium 141, Potassium 3.8, Chloride 107, Carbon Dioxide 25, Anion Gap 12.8, BUN 17, Creatinine 0.60, Estimated Creat Clear 174, Estimated GFR 122, Est GFR ( Amer) 147, Glucose 126 H, Lactate 0.9, Calcium 11.0 H, Total Bilirubin 0.6, AST 29, ALT 25, Alkaline Phosphatase 63, Total Protein 8.3 H, A lbumin 5.2 H, Globulin 3.1, Albumin/Globulin Ratio 1.7, Lipase 116, Serum HCG, Qual Negative, HCV Ab TANMAY w/Rflx PCR Qn Negative, HIV Ag/Ab Combo Qual Negative Orders (Tests/Meds): ED MEDICATIONS Discontinued Medications Generic Name Dose Route Start Last Admin Trade Name Freq PRN Reason Stop Dose Admin Lactated Ringer's 1,000 mls @ 999 mls/hr 12/24/24 06:13 12/24/24 06:22 Lactated Ringer's 1000 Ml Bag IV 12/24/24 07:13 999 mls/hr .Q1H1M ONE Administration Ondansetron HCl 4 mg 12/24/24 06:13 12/24/24 06:22 Ondansetron 4mg/2ml Vial IV 12/24/24 06:14 4 mg ONCE ONE Administration Promethazine HCl 12.5 mg 12/24/24 06:30 12/24/24 06:33 Promethazine Hcl 25mg/Ml 1ml Vial IV 12/24/24 06:31 12.5 mg ONCE ONE Administration Sodium Chloride 25 ml 12/24/24 06:30 12/24/24 06:33 Sodium Chloride 0.9% 25ml Bag IV 12/24/24 06:31 25 ml ONCE ONE Administration ORDERS Category Date Time Status CBC w/Auto Diff [Complete Blood Count Auto Diff] Stat Lab 12/24/24 06:25 Completed CMP [Comprehensive Metabolic Panel] Stat Lab 12/24/24 06:25 Completed HCG Qualitative, Serum Stat Lab 12/24/24 06:25 Completed HIV Combo Stat Lab 12/24/24 06:25 Completed Hepatitis C Ab Qual. W/ RFX Stat Lab 12/24/24 06:25 Completed Lactic Acid Stat Lab 12/24/24 06:25 Completed Lipase Stat Lab 12/24/24 06:25 Completed Medical Decision Narrative: In summary, this 23-year-old female 4 months presents to the emergency department today with nausea, vomiting. On initial evaluation patient is hemodynamically stable, afebrile, she appears ill and uncomfortable but not in extremis, abdominal exam is benign without any tenderness, cardiopulmonary exam benign, remainder of exam reassuring. Differential diagnosis includes but is not limited to viral syndrome, electrolyte abnormality, dehydration, I considered the possibility of intra-abdominal pathology like bowel obstruction, appendicitis, cholecystitis but have extremely low suspicion for these since patient does not have any abdominal pain or tenderness. She also has no urinary symptoms that would make me concerned for UTI or pyelo. Based on these concerns, I ordered serum labs initially including hCG. Patient is receiving IV fluids and Zofran for initial treatment and symptomatic management. Labs reviewed by me demonstrate leukocytosis WBC 11, no anemia, normal platelets, CMP nonactionable at this time. Patient does not have evidence of kidney dysfunction. Lipase normal at 116 reassuring against pancreatitis, lactic normal at 0.9. Patient was still having emesis after initial interventions. Phenergan administered for additional symptomatic management. Patient handed off to Dr. Powell for continued management and disposition. Andre, DO: On my assessment of the patient, she is feeling a lot better after Phenergan and had cessation of nausea and vomiting. She is able to tolerate oral intake of liquids. CBC is reassuring with only mild leukocytosis, likely leukemoid reaction from vomiting. Chemistry is reassuring with only mild hypercalcemia, likely concentration related to vomiting. She was given IV fluids here. Otherwise, workup is very reassuring. On my assessment of her abdominal exam, she has no localizable tenderness, rebound, or guarding. Given this, doubt surgical intra-abdominal pathology. I considered obtaining CT scan of the abdomen, however given that symptoms have improved and her abdominal exam is benign, I do not feel that it would international exchange coordinator as patient is unlikely to have any sort of surgical intra-abdominal pathology. At this time, feel that she is appropriate for discharge home with prescription for Phenergan and instructions for supportive management. Strict return precautions given as well as instructions for close outpatient follow-up Critical Care <Sandro Munoz MD - Last Filed: 12/24/24 06:55> Critical Care Time Critical Care Time: No
[2024-12-24 06:18] VITALS: BP 138/100; PULSE 81; RESP 20; TEMP 37.1; O2SAT 98; BMI 27.4
[2024-12-24] MEDS: LACTATED RINGERS 1000ML 1,000 ML 999 ML IV (06:22)
[2024-12-24] MEDS: ONDANSETRON 4MG/2ML VIAL 4 MG IV (06:22)
[2024-12-24] MEDS: SODIUM CHLORIDE 0.9% 25ML BAG 25 ML IV (06:33)
[2024-12-24] MEDS: PROMETHAZINE HCL 25MG/ML 1ML VIAL 12.5 MG IV (06:33)
[2024-12-24 06:37] LABS: Basophils % 0.4 % (0.1-2.0); Eosinophils # 0.1 K/mm3 (0.0-0.4); Hematocrit 41.2 % (37.0-47.0); Hemoglobin 13.9 g/dL (12.2-16.2); Lymphocytes # 1.5 K/mm3 (0.7-4.5); Lymphocytes % 13.3 % (10-50); Mean Corpuscular HGB Conc 33.7 g/dL (31.8-35.4); Mean Corpuscular Hemoglobin 28.8 pg (27.0-31.2); Mean Corpuscular Volume 85.5 fl (81-99); Monocytes # 0.4 K/mm3 (0.1-1.0); Monocytes % 3.9 % (1.7-9.3); Neutrophils # 8.9 K/mm3 (1.8-7.8); Neutrophils % 80.9 % (37.0-80.0); Platelet Count 292 K/mm3 (142-424); Red Blood Count 4.82 M/mm3 (4.20-5.40); Red Cell Distribution Width 12.9 % (11.5-17.5)
[2024-12-24 06:47] LABS: Lactic Acid 0.9 mmol/L (0.7-2.1)
[2024-12-24 06:48] LABS: Alanine Aminotransferase 25 U/L (12-78); Albumin Level 5.2 g/dl (3.5-5.0); Albumin/Globulin Ratio 1.7 (1.1-1.8); Alkaline Phosphatase 63 U/L (38-126); Anion Gap 12.8 mEq/L (5-15); Aspartate Amino Transferase 29 U/L (14-36); Bilirubin,Total 0.6 mg/dl (0.2-1.3); Blood Urea Nitrogen 17 mg/dl (7-17); Carbon Dioxide 25 mmol/L (22.0-30.0); Chloride 107 mmol/L (98-107); Creatinine Clearance Estimated 174 mL/min (50-200); Estimated Glomerular Filt Rate 122 ml/min (>60); GFR (African American) 147 ML/MIN (>60); Globulin 3.1 g/dL (1.3-3.2); Glucose 126 mg/dl (74-100); Lipase 116 U/L (23-300); Potassium 3.8 mmoL/L (3.5-5.1); Sodium 141 mmol/L (136-145); Total Protein,Serum 8.3 g/dl (6.3-8.2)
[2024-12-24 06:59] LABS: HCG Qualitative, Serum Negative (Negative)
--- NOTE | 2024-12-24 07:31 | PC.NURSE ---
Rounded on patient water given for po challenge.
[2024-12-24 07:46] LABS: HIV Combo NEGATIVE (Negative)
[2024-12-24 07:53] LABS: Hepatitis C Ab Qual. W/ RFX NEGATIVE (Negative)
[2024-12-24 08:08] VITALS: BP 140/86; PULSE 81; RESP 20; TEMP 37.1; O2SAT 99
== END 2024-12-24 08:09 | disposition home or self-care (01) ==
PROVIDERS: Emergency Provider Emergency Medicine; PCP Physician Assistant
DX: R11.2 Nausea with vomiting, unspecified (principal); R10.84 Generalized abdominal pain
CPT/HCPCS: 80053; 83605; 83690; 84703; 85025; 86803; 87389; 96361; 96374; 96375; 99284; J2405; J2550; J7120

== ENCOUNTER 2025-04-26 11:33 | Emergency (ER) | payer BC, SELFPAY ==
--- OUTSIDE RECORDS SUMMARY | 2023-12-30 09:00 | XMS_ITS ---
Author Organization [facility] Address [address] [place] [address] Care Team Providers Care Operations Manager Station Name Role Phone Lizz Trinh Unavailable [phone] Results Component Value Reference Range Notes *US OB Complete Transabdomin al/Vaginal Reviewed date:01/02/2024 08:45:57 AM Interpretation: Performing Lab: Notes/Report: [facility] Transvaginal Obstetric Study Report Name: BIRDIE ALANIZ Accession/Encounter No:[id number] : 2000 Age: 22 Gender: F Study Date: Dec 30, 2023 Study Time: 01:35 PM Reading Group: Luisa Ramirez MD Referring Group: Lizz Trinh CNM Ordering Phys: Lizz Trinh CNM Performing User: Silvia Infante RDMS Equipment: Affiniti 30 Study Quality: Good Indications: NOB A 1st Trimester ultrasound was performed. General Information Trimester: 1st trimester Gestations: 1 : Intrauterine Gestational Age (Best) Best: 7w 2d Determined by: LMP MATILDE: 2024-08-15 Gestational Age (LMP) LMP: 7w 2d First Day of LMP: 2023-11-09 MATILDE: 2024-08-15 Gestational Age (Current US) Current US: 6w 6d MATILDE: 2024-08-18 General Evaluation cardiac activity: Present Gestational sac: Present Yolk sac: Present 2.5 mm pole: Present Biometry (Fetus A) HR: 126 bpm Atlantis-rump length:8.61 mm 6w 6d Findings: Anatomy: Sonographic evaluation reveals lomeli intrauterine . cardiac activity present. Conclusions: Lomeli IUP noted with cardiac activity. Size is consistent with LMP dating. Uterus, ovaries and bilateral adnexa appear normal. Approved By: Luisa Ramirez MD Approved at: 2023 08:42 PM EDT Electronically Signed on Studycast BIRDIE ALANIZ 2023-12-30 Page 1 of 1 [facility] - [facility] REASON FOR VISIT NOB LMP 2 MATILDE 08/17, HZ Social History Sex Assigned At : Social History Observation Description Sex Assigned At Female Encounters Encounter Location Date Provider Diagnosis [facility] [address] [place] [address] 12/30/2023 Lizz Trinh Missed menses N92.6 Assessments Encounter Date Diagnosis (ICD Code) Assessment Notes Treatment Notes Treatment Clinical Notes Section Notes 12/30/2023 Missed menses (ICD-10 - N92.6) Plan Of Treatment No Information Progress Notes * Birdie ALANIZDOB:2000 ( 24 yo F)Acc No.[id number]:12/30/2023 Patient: Birdie Amaya Provider: Brijesh Trinh CNM :2000 A ge:22 Y S ex:Female Date:12/30/2023 Address:[address] [place] [address] [place], [id number] Subjective: * Chief Complaints: * N OB LMP 27 MATILDE 08/17, HZ Assessment: * Assessment: 1. M issed menses - N92.6 (Primary) Plan: * Treatment: * Electronic signature of Rhoda Trinh CNM on 04/26/2025 at 11:52 AM EDT Sign off status: Pending Visit Status: Hanny ÁLVAREZ (Check Out) * Provider: Brijesh Trinh CNM Date: 12/30/2023 Generated for Becky le/Cesar/eTransmitting on: 0 04/26/2025 11:52 AM EDT
[2025-04-26 11:39] VITALS: BP 115/82; PULSE 91; O2SAT 99
[2025-04-26 11:40] VITALS: BP 115/82; PULSE 80; RESP 16; TEMP 36.7; O2SAT 99; BMI 27.4
[2025-04-26 11:45] VITALS: BP 113/77; PULSE 79; O2SAT 100
--- OUTSIDE RECORDS SUMMARY | 2025-04-26 11:52 | XMS_ITS | Patient Health Record ---
Author Organization [facility] Address [address] [place] [address] Care Team Providers Care Breakdown Man Name Role Phone Lizz Trinh Unavailable [phone] Allergies No Known Allergies Reason For Referral No Information Medications Medication SIG (Take, Route, Frequency, Duration) Notes Start Date End Date Status ZyrTEC 10 MG Tablet Chewable 1 tablet Orally Once a day; Duration: 30 day(s) 12/30/2023 Active (w/Iron & FA) 27-0.8 MG Tablet 1 tablet Orally Once a day; Duration: 30 day(s) 12/30/2023 Active Social History Tobacco Use: Social History Observation Description Date Details (start date - stop date) Never Smoker NA - NA Sex Assigned At : Social History Observation Description Sex Assigned At Female Social History Drugs/Alcohol: Social Info Question Answer Notes Drugs Have you used drugs other than those for medical reasons in the past 12 months? No Tobacco Use: Social Info Question Answer Notes Tobacco Control (Standard) Tobacco use: Nonsmoker Problems Problem Type SNOMED Code ICD Code Onset Dates Problem Status W/U Status Risk Notes Problem Missed menses (N92.6) Active confirmed Plan Of Treatment No Information Insurance Providers Payer Name Payer Address Payer Phone Subscriber Number Group Number Insured Name Patient Relationship to Insured Coverage Start Date Coverage End Date Surjit WALDEN [address] [place] [address] [phone] [id number] Birdie Alaniz Self - patient is the insured Medical (General) History Medical History History ICD Code Depression migraine headaches Surgical History Surgery Date(Month/Year) Oral
--- OUTSIDE RECORDS SUMMARY | 2025-04-26 11:52 | XMS_ITS | Clinical Summary ---
Author Organization [facility] Address [address] [place] [address] Care Team Providers Care Bladder Cleaner Name Role Phone Pcp, No Primary Care Provider Unavailabl e Allergies No known active allergies Medications * This document contains information received from the source organization and may not represent a complete record from that organization. FLUoxetine (PROzac) 20 MG capsule Take 1 capsule (20 mg) by mouth 1 (one) time each day. Active fexofenadine (Nury) 60 MG tablet Take 60 mg by mouth 1 (one) time each day. Active fexofenadine (Nury) 180 MG tablet Take 180 mg by mouth 1 (one) time each day. Active metFORMIN (Glucophage) 500 MG tablet Take 500 mg by mouth 1 (one) time each day. Active MV-Min-Fe Fum-FA-DHA ( 1 PO) Take by mouth. Active cetirizine (ZyrTEC) 10 MG tablet Take 1 tablet (10 mg) by mouth 1 (one) time each day. Active Immunizations Immunization Administration Dates Next Due Hep B, Adolescent or Pediatric 2000 Hep B, adult 08/04/2022,02/25/2022 Influenza, injectable, MDCK, preservative free, quadrivalent 08/11/2022 Influenza, injectable, quadrivalent, preservativ e free 08/11/2023 MMR 03/29/2022,07/02/2003 Tdap 02/25/2022 Social History Tobacco Use Types Packs/Day Years Used Date Smoking Tobacco: Never Assessed Comments Unknown Sex and Gender Information Value Date Recorded Sex Assigned at Female 02/25/2022 4:16 PM EDT Legal Sex Female 3:04 PM EDT Gender Identity Female 02/25/2022 4:16 PM EDT Sexual Orientation Not on file Plan of Treatment Health Maintenance Due Date Last Done Comments [facility]-Depression Screening 1998 [facility]-HIV Screening 1998 [facility]-Hepatitis C Screening 1998 [facility]-Infant/Child/Adol SDOH Screenings 01/01/1999 HPV Vaccines (1 - 3-dose series) 2013 [facility]- SDOH Screenings 2016 [facility]-Adult SDOH Screenings 2016 [facility]-Pap Smear 01/01/2020 [facility]-Varicella Vaccines (1 of 2 - 13+ 2-dose series) 04/26/2022 [id number]-00 Vaccine (3 - season) 2024 09/18/2021, 08/15/2021 [facility]-Influenza Vaccine (#1) 06/03/202508/11, 08/11/2022 [facility]-DTaP,Tdap,and Td Vaccines (2 - Td or Tdap) 02/26/2032 02/25/2022 [facility]-Zoster Vaccines (1 of 2) 2048 [facility]-Hepatitis B Vaccines Completed 022, 02/25/2022, 1998 [facility]-HIB Vaccines Aged Out No longer e ligible based on patient's age to complete this topic [facility]-Hepatitis A Vaccines Aged Out No longer eligible based on patient's age to complete this topic [facility]-IPV Vaccines Aged Out No longer e ligible based on patient's age to complete this topic [facility]-Pneumococcal Vaccine: Pediatrics (0 to 5 Years) and At-Risk Patients (6 to 49 Years) Aged Out No longer eligible b ased on patient's age to complete this topic [facility]-Rotavirus Vaccines Aged Out No lo nger eligible based on patient's age to complete this topic Insurance [facility] Care Teams Bladder Cleaner Relationship Specialty Start Date End Date Pcp, Kristen [address] [place] [address] PCP - General Family Medicine 02/25/22
--- OUTSIDE RECORDS SUMMARY | 2025-04-26 11:52 | XMS_ITS | Data Portability ---
Author Organization [facility] Address [address] [place] [address] Assessment No assessment recorded. Plan of Treatment Reminders Order Date Submit Date Provider Last Modified By Organization Details Last Modified Time Details Appointments FOLLOW UP 2024 08:00A M Slime Villalobos PA-C Not available Not available Not available Lab None recorded. Referral None recorded. Procedures None recorded. Surgeries None recorded. Imaging None recorded. Medication Orders fluoxetin e 20 mg capsule 2024 025 [facility] #[id number], [address] [facility] [address] [place], [place], [id number], 01/31/2025 15:30:24 Patient TargetsNo targets recorded. Patient InstructionsNo instructions recorded. Reason for Referral None Reported. Problems Name Problem SNOMED Code Status Onset Date Resolution Date Notes Provider Name and Address Organization Details Recorded Time Depressive disorder 64906195 Active OLEKSANDR Poe [address] [place], [address], [facility]. 15:29:57 Problem Notes None recorded. Medical Equipment None Reported. Allergies No known drug allergies Medications Name Sig Start Date Stop Date Status Note LastModified by Organization Details LastModified Time Zyrtec 10 mg tablet Take 1 tablet every day by oral route. active Not Available Not Available No t Available promethazin e 25 mg tablet TAKE 1 TABLET BY MOUTH EVERY 6 HOURS NEEDED FOR NAUSEA OR VOMITING 01/31 completed Not Available Not Available Not Available fluoxetine 20 mg capsule TAKE 1 CAPSULE BY MOUTH EVERY DAY active Not Available Not Available No t Available cyclobenzap rine 5 mg tablet TAKE 1 TABLET BY MOUTH THREE TIMES DAILY NEEDED FOR MUSCLE SPASMS 01/31 completed Not Available Not Available Not Available Vitals Date Recorded Body weight Body mass index (BMI) Body height Oxygen saturation Oxygen saturation in Arterial blood by Pulse oximetry Heart rate Body temperature Systolic And Diastolic Provider Name and Address Organization Details Last Updated DateTime 16244.0 8 g 27.1 kg/m2 167.64 cm 98 % 98 % 76 /min 98.5 [degF] 118/76 mm[Hg] Caroline [employer]. 15:11:05 Social History Question Answer Notes LastModified by Organizat ion Details LastModified Time Tobacco Smoking Status Never Smoker Caroline Oh [employer]. 01/31/2025 15:06:50 Do You Have An Advance Directive? No Information not available 01/31/2025 Is Your Home Air Conditioned? Yes Information not available 01/31/2025 If You Are , What Was Your Level Of Alcohol Consumption Prior To ? Moderate Information not available 01/31/2025 How Many Years Have You Consumed Alcohol? 5 Information not available 01/31/2025 Do You Wear A Helmet When Biking? No Information not available 01/31/2025 Are You Blind Or Do You Have Difficulty Seeing? No Information not available 01/31/2025 What Is Your Level Of Caffeine Consumption? Moderate Information not available 01/31/2025 What Type Of Examiner Rating Clerk Do You Use? None Information not available 01/31/2025 Have You Been To An Area Known To Be High Risk For COVID-19? No Information not available 01/31/2025 Are You Deaf Or Do You Have Serious Difficulty Hearing? No Information not available 01/31/2025 What Type Of Diet Are You Following? REGULAR Information not available 01/31/2025 What Is The Highest Grade Or Level Of School You Have Completed Or The Highest Degree You Have Received? [id number] Information not available 01/31/2025 Who Is Your Employer? [employer] Information not available 01/31/2025 Have There Been Any Changes To Your Family Or Social Situation? No Information not available 01/31/2025 Are There Any Guns Present In Your Home? Yes Information not available 01/31/2025 Which Of Your Hands Is Dominant? Right Information not available 01/31/2025 Do You Have A Medical Power Of Head Of Ethics And Compliance? No Information not available 01/31/2025 What Was The Date Of Your Most Recent Tobacco Screening? 01/31/2025 Information not available 01/31/2025 Are There Any Occupational Health Risks Where You Work? No Information not available 01/31/2025 Do You Have Any Pets? Yes Information not available 01/31/2025 Do You Use Protection During Sex? Usually Information not available 01/31/2025 What Is Your Relationship Status? Information not available 01/31/2025 Have You Repeated Any Grades? No Information not available 01/31/2025 Do You Use Your Seat Belt Or Car Seat Routinely? Yes Information not available 01/31/2025 Are You Sexually Active? Yes Information not available 01/31/2025 Do You Have Smoke And Carbon Monoxide Detectors In Your Home? Yes Information not available 01/31/2025 Are You Passively Exposed To Smoke? No Information not available 01/31/2025 Are There Any Smokers In Your House? No Information not available 01/31/2025 Do You Participate In Social Media? Yes Information not available 01/31/2025 Do You Use Sunscreen Routinely? Yes Information not available 01/31/2025 Has Tobacco Cessation Counseling Been Provided? No Information not available 01/31/2025 Have You Recently Traveled Abroad? No Information not available 01/31/2025 Do You Have Difficulty Walking Or Climbing Stairs? No Information not available 01/31/2025 Are You Currently In School? No Information not available 01/31/2025 What Contraceptive Method Was Reported At Start Of This Visit? None Information not available 01/31/2025 Do You Have Any Dietary Restrictions? No Information not available 01/31/2025 Sex: Unknown Functional Status Question Answer Note LastModified by Organizat ion Details LastModified Time Do you use any illicit or recreational drugs? No Information not available 01/31/2025 Do you or have you ever used any other forms of tobacco or nicotine? No Information not available 01/31/2025 What is your level of alcohol consumption? Moderate Information not available 01/31/2025 Are you currently employed? Yes Information not available 01/31/2025 Do you have transportation difficulties? No Information not available 01/31/2025 Are you able to walk? YESWOREST Information not available 01/31/2025 Do you have difficulty doing errands alone? No Information not available 01/31/2025 Are you able to care for yourself independently? Yes Information not available 01/31/2025 Do you have difficulty dressing, bathing, grooming, or toileting? No Information not available 01/31/2025 What is your exercise level? Occasional Information not available 01/31/2025 Mental Status Question Answer Note LastModified by Organizat ion Details LastModified Time Do you feel stressed (tense, restless, nervous, or anxious, or unable to sleep at night)? [id number] Information not available 01/31/2025 Do you have difficulty concentrating, remembering or making decisions? No Information no t available 01/31/2025 Are you or have you been involved with bullying? No Information not available 01/31/2025 Family History Relationship Description Onset Age of this Age Resolved Age Notes LastModified by Organization Details LastModified Time Paternal Grandmother Malignant tumor of breast Not available 2024 15:06:50 Mother Seizure Not available 15:06:50 Brother Anxiety disorder Not available 2024 15:06:50 Brother Depressive disorder Not available 2024 15:06:50 Brother Arthritis Not available 01/31/2025 15:06:50 Maternal Grandfather Malignant neoplasm of lung Not available 2024 15:06:50 Maternal Grandfather Diabetes mellitus Not available 2024 15:06:50 Father Hypertensive disorder Not available 2024 15:06:50 Medical History Condition Response Allergies (Food, seasonal, environmental ) Y Coronary Artery Disease N Other N Gout N Kidney Stones N Blood Diseases N Hyperthyroidism N Breast Cancer N Blood Transfusion N Emergency room visit since last appointm ent. N Hypothyroidism N Lung Disease N COPD N Dermatologic Disorders N Depression Y Defects or Inherited Disease N Developmental or Behavioral Disorders N Breast Problem N Difficulty Swallowing N Anesthesia Complications N History of STI N Meniere's disease N Anxiety Disorder N Muscle, Joint, or Bone Problems N Autoimmune disease N Vision or Eye Problems N Arthritis N Polyps N Infertility N Mental Disorder N Congenital Anomalies N Acid Reflux (GERD) N Cancer N Stroke N Neurologic/Epilepsy N Endometriosis N Bladder or Kidney Problems N High Cholesterol N Liver Disease N Psychiatric/Mental Health Condition N Organ Transplant N Headaches Y Schizophrenia N Fibromyalgia N Dialysis N Kidney Disease N Allergies/Hayfever Y Heart Problems N Ear or Hearing Problems N Hospitalizations N Learning Disorder N Artificial Joints N Thyroid Problems N GI Problems N Acne N ADD/ADHD N Eating Disorder N Anemia N Constipation N Mental Illness N Ovarian Cancer N Diabetes N Bedwetting N Hepatitis/Liver Disease N Tuberculosis N Eczema N Diverticulitis N Abuse/Domestic Violence N Asthma N Trauma/Violence N Substance Abuse N Reflux/GERD N Depression/ depression N Hepatitis N Heart Disease N Pulmonary Embolism N Tourette Syndrome N Pre-Eclampsia N Hypertension N Chronic Ear Infections N Osteoporosis N Chicken Pox N Autism Spectrum Disorder (ASD) N Thrombophilias N Gynecological History Statement/Question Response Menses Monthly N Date of Last Pap Smear Most Recent Mammogram Age at First Child 23 Obstetrics History GPAL:G 1 P 1 0 0 1 Type Value Multiple Births 0 Full Term 1 Induced 0 Spontaneous 0 Premature 0 Living 1 Ectopics 0 Total 1 Immunizations Vaccine Type Date Status Note Provider Nam e and Address Organization Details Recorded Time Hep B, adolescent or pediatric 1998 completed Not Available [facility] 15:03:46 MMR 07/02/2003 completed Not Available [facility] 01/31/2025 15:03:46 COVID-19, mRNA, LNP-S, PF, 100 mcg/0.5mL dose or 50 mcg/0.25mL dose 08/15/2021 completed Not Available [facility] 15:03:46 COVID-19, mRNA, LNP-S, PF, 100 mcg/0.5mL dose or 50 mcg/0.25mL dose 09/18/2021 completed Not Available [facility] 15:03:46 Hep B, adult 02/25/2022 completed Not Available [facility] 01/31/2025 15:03:46 Tdap 02/25/2022 completed Not Available [facility] 01/31/2025 15:03:46 MMR 03/29/2022 completed Not Available [facility] 01/31/2025 15:03:46 Hep B, adult 08/04/2022 completed Not Available [facility] 01/31/2025 15:03:46 Influenza, MDCK, quadrivalent, PF 08/11/2022 completed Not Available [facility] 10/2024 15:03:46 Influenza, split virus, quadrivalent, PF 08/11/2023 completed Not Available [facility] 10/2024 15:03:46 Tdap 05/23/2024 completed Not Available [facility] 01/31/2025 15:03:46 RSV, bivalent, protein subunit RSVpreF, diluent reconstituted, 0.5 mL, PF 07/10/2024 completed Not Available [facility] 15:03:46 Past Encounters Encounter ID Performer Location Encounter Start Date Encounter Closed Date Diagnosis/Indication Diagnosis SNOMED-CT Code Diagnosis ICD10 Code Diagnosis Note [id number] OLEKSANDR Guan [facility] [address] [place] [address] 01/31/2025 15:03:20 01/31/2025 15:32:36 Depressive disorder 04335603 F32.A Health Concerns Section Related Observation LastModified by Organization Detai ls LastModified Time None Recorded Concern Status LastModified by Organization Details LastModified Time None Recorded Advance Directives Directive N: Payers Insurance Date Sequence Insurance Name Policy Number Policy John Covered Member ID John Member ID Guarantor Name 02/01/2025 1 [place] [id number] [facility] [id number] [facility] Notes Date Note Type Note Provider Name and Address Organization Details Recorded Time 01/31/2025 text/html ROS as noted in the HPI Patient presents to establish care.History of PPD. Doing well on fluoxetine. Denies side effects.No other issues. OLEKSANDR Guan [address] [place] [address], [phone], [facility] [employer] 01/31/2025 15:49:19 OBGyn Episode No OBEpisode recorded.
--- OUTSIDE RECORDS SUMMARY | 2025-04-26 11:52 | XMS_ITS | Clinical Summary ---
Author Organization [facility] Address [address] [place] [address] Care Team Providers Care Steel Erector Apprentice Name Role Phone Edin Ackerman MD Primary Care Provider [phone] Allergies No known active allergies Medications MV-Min-Fe Fum-FA-DHA ( 1 PO) Take by mouth. Active FLUoxetine (PROzac) 20 MG capsule Take 1 capsule by mouth Daily. Active acetaminophen (TYLENOL) 325 MG tablet Take 2 tablets by mouth Every 6 (Six) Hours As Needed for Mild Pain (Second Line: Mild pain unrelieved by ibuprofen. Stagger doses 3 hours after dose of ibuprofen.). 60 tablet 08/16/2024 10:21 AM EST Active ibuprofen (ADVIL,MOTRIN) 600 MG tablet Take 1 tablet by mouth Every 6 (Six) Hours As Needed for Mild Pain (First Line: Mild pain.). 60 tablet 08/16/2024 10:21 AM EST Active Active Problems Problem Noted Date Diagnosed Date Normal labor 08/13/2024 Sciatic nerve pain, left 06/06/2024 Assessment & Plan (06/06/2024 4:14 PM EDT): 06/06/2024- Advised to begin taking Tylenol sparingly, heating pad to back only, warm bath/not hot, and begin wearing a belly band PRN pain. If pain does not improve with interventions, will refer to PT. Supervision of normal first , antepartu m 02/07/2024 Resolved Problems Problem Noted Date Diagnosed Date Resolved Date 08/14/2024 08/16/2024 Immunizations Immunization Administration Dates Next Due ABRYSVO (RSV, 60+ or women 32-36 wks) 1 Tdap 05/23/2024 Family History Medical History Relation Name Comments Diabetes Maternal Grandfather Willie Little Breast cancer Paternal Grandmother Quinn Crawley Relation Name Status Comments Maternal Grandfather Willie Little Paternal Grandmother Quinn Crawley Social History Tobacco Use Types Packs/Day Years Used Date Smoking Tobacco: Never Tobacco Cessation:Counseling Given: Not Answered Alcohol Use Standard Drinks/Week Comments Not Currently 0 (1 standard drink = 0.6 oz pur e alcohol) [facility] Utilities Answer Date Recorded In the past 12 months has e electric, gas, oil, or water company threatened to shut off services in your home? No 08/14/2024 AUDIT-C Answer Date Recorded Q1: How often do you have a drink containing alcohol? Never 08/14/2024 Q2: How many drinks containi ng alcohol do you have on a typical day when you are drinking? Patient does not drink Q3: How often do you have si x or more drinks on one occasion? Never 08/14/2024 Overall Financial Resource Strain (CARDIA) Answe r Date Recorded How hard is it for you to pa y for the very basics like food, housing, medical care, and heating? Not hard at all 08/14/2024 [facility] - Occupational Stress Questionnaire Answer Date Recorded Do you feel stress - tense, restless, nervous, or anxious, or unable to sleep at night because your mind is troubled all the time - these days? Not at all 08/14/2024 Exercise Vital Sign Answer Date Recorde d On average, how many days pe r week do you engage in moderate to strenuous exercise (like a brisk walk)? 2 days 08/14/2024 On average, how many minutes do you engage in exercise at this level? 40 min 08/14/2024 Hunger Vital Sign Answer Date Recorded Within the past 12 months, y ou worried that your food would run out before you got the money to buy more. Never true 08/14/20 24 Within the past 12 months, t he food you bought just didn't last and you didn't have money to get more. Never true 08/14/2024 PRAPARE - Transportation Answer Date Re corded In the past 12 months, has l ack of transportation kept you from medical appointments or from getting medications? No 08/03 In the past 12 months, has l ack of transportation kept you from meetings, work, or from getting things needed for daily living? No 08/14/2024 [place] Depression Scale Answer Date Recorded [place] Depression Scale Total 4 09/24/2024 The thought of harming myself has occurred to me . Never 09/24/2024 Abuse Screen Answer Date Recorded Feels Unsafe at Home or Work/School no 08/14/2024 Feels Threatened by Someone no 08/03 Does Anyone Try to Keep You From Having Contact with Others or Doing Things Outside Your Home? no 08/14/2024 Physical Signs of Abuse Present no 08/14/2024 Housing Stability Answer Date Recorded Current Living Arrangements home 08/03 Potentially Unsafe Housing Conditions none 08/14/2024 Family and Community Support Answer Charbel e Recorded If for any reason you need h elp with day-to-day activities such as bathing, preparing meals, shopping, managing finances, etc., do you get the help you need? I get all the help I need 08/14/2024 How often do you feel lonely or isolated from those around you? Never 08/14/2024 Employment Answer Date Recorded Do you want help finding or keeping work or a job? I do not need or want help 08/14/2024 Disabilities Answer Date Recorded Difficulty Concentrating, Remembering or Making Decisions no 08/14/2024 Difficulty Managing Errands Independently no 08/14/2024 Education Answer Date Recorded Do you want help with school or training? For example, starting or completing job training or getting a high school diploma, GED or equivalent No 08/14/2024 Preferred Language Qatari 08/14/2024 PHQ-2 Answer Date Recorded Patient Health Questionnaire-2 Score 0 08/14/2024 Comments No Sex and Gender Information Value Date Recorded Sex Assigned at Not on file Legal Sex Female 11:33 AM EDT Gender Identity Not on file Sexual Orientation Not on file Last Filed Vital Signs Vital Sign Reading Time Taken Comments Blood Pressure 98/80 09/24/2024 1:42 PM EST Pulse 60 08/16/2024 7:11 AM EST Temperature 36.9 C (98.4 F) 08/16/2024 7:11 AM EST Respiratory Rate 18 08/16/2024 7:11 AM EST Oxygen Saturation 100% 08/13/2024 5:59 PM EST Inhaled Oxygen Concentration - - Weight 78.9 kg (174 lb) 09/24/2024 1:42 PM EST Height 167.6 cm (5' 6 ) 09/24/2024 1:42 PM EST Body Mass Index 28.08 09/24/2024 1:42 PM EST Plan of Treatment Health Maintenance Due Date Last Done Comments Annual Gynecologic Pelvic an d Breast Exam 2000 HPV VACCINES (1 - 3-dose series) 2013 ANNUAL PHYSICAL 02/07/2024 COVID-19 Vaccine (3 - 2023-2 5 season) 2024 09/18/2021, 08/15/2021 INFLUENZA VACCINE 07/03/2025 08/11/2023, 08/11/2022 PAP SMEAR 02/06/2027 02/07/2024 TDAP/TD VACCINES (3 - Td or Tdap) 05/23/2034 05/23/2024, 02/25/2022 HEPATITIS C SCREENING Completed 02/07/2024 Pneumococcal Vaccine 0-49 Aged Out No longer eligible based on patient's age to complete this topic Procedures Procedure Name Priority Date/Time Associated Diagnosis Comments LIQUID-BASED PAP SMEAR WITH HPV GENOTYPING REGARDLESS OF INTERPRETATION, [facility] (DANIEL,COR,MAD) Routine 02/07/2024 4:59 PM EDT 12 weeks gestation of OBSTETRIC PANEL Routine 02/07/2024 3:13 PM EDT 12 weeks gestation of from Last 3 Months or Most Recently Relevant to Health Maintenance Results * LIQUID-BASED PAP SMEAR WITH HPV GENOTYPING REGARDLESS OF INTERPRETATION (DANIEL,COR,MAD) (02/07/2024 4:59 PM EDT) Pathologist [facility] Reference Lab Report [facility] [address] [place] [address] or [phone] Torsten Gates M.D., Wet Press Tender PATIENT NAME LAB[facility]ATORY NO. [address] [place] ALANIZ [id number] AGE SEX SSN CLIENT REF # [facility] 25 2000 F [id number] [address] REQUESTING [place] [address] [place] LOUIE DATE COLLECTED DATE RECEIVED DATE REPORTED 02/07/2024 02/07/2024 02/09/2024 ThinPrep Pap with Cytyc Imaging DIAGNOSIS: Negative for intraepithelial lesion or malignancy Multiple factors can influence accuracy of Pap tests; therefore, screening at regular intervals is necessary for early cancer detection. SPECIMEN ADEQUACY: SATISFACTORY FOR EVALUATION Transformation zone is absent or insufficient. SOURCE OF SPECIMEN: CERVICAL/ENDOCERV ICAL SLIDES: 1 CLINICAL HISTORY: 12 weeks gestation of HPV HR-HPV POOL: Negative The Aptima HPV assay is an in vitro nucleic acid amplification test for the qualitative detection of E6/E7 viral messenger RNA from 14 high risk types of HPV in cervical specimens. The high risk HPV types detected include: 16, 18, 31, 33, 35, 39, 45, 51, 52, 56, 58, 59, 66, 68 FOUR H CLUB AGENT: SHRADDHA RODGERS (ASCP) CPT CODES: 62917, [id number] 02/09/2024 3:22 PM EDT [facility] ThinPrep Vial Collection / Unknown 02/07/2024 4:59 PM EDT 02/07/2024 4:59 PM EDT us Orlando Louie MD PATHOLOGY/CYTOLOGY ORDER MALATHI Final Result [facility]
[address] [place] [address], [place] [phone] * (ABNORMAL) Obstetric Panel (02/07/2024 3:13 PM EDT) Hepatitis B Surface Ag Negative Negative [facility] Hep C Virus Ab Non Reactive Non Reactive [facility] Comment: HCV antibody alone does not differentiate between previously resolved infection and active infection. Equivocal and Reactive HCV antibody results should be followed up with an HCV RNA test to support the diagnosis of active HCV infection. RPR Non Reactive Non Reactive [facility] Rubella Antibodies, IgG 1.93 Immune >0.99 index [facility] Comment: Non-immune <0.90 Equivocal 0.90 - 0.99 Immune >0.99 ABO Type A [facility] Rh Factor Positive [facility] Comment: Please note: Prior records for this patient's ABO / Rh type are not available for additional verification. Antibody Screen Negative Negative [facility] WBC 9.9 3.4 - 10.8 x10E3/uL [facility] RBC 4.09 3.77 - 5.28 x10E6/uL [facility] Hemoglobin 12.2 11.1 - 15.9 g/dL [facility] Hematocrit 37.2 34.0 - 46.6 % [facility] MCV 91 79 - 97 fL [facility] MCH 29.8 26.6 - 33.0 pg [facility] MCHC 32.8 31.5 - 35.7 g/dL [facility] RDW 12.3 11.7 - 15.4 % [facility] Platelets 262 150 - 450 x10E3/uL [facility] Neutrophil Rel % 72 Not Estab. % [facility] Lymphocyte Rel % 18 Not Estab. % [facility] Monocyte Rel % 8 Not Estab. % [facility] Eosinophil Rel % 1 Not Estab. % [facility] Basophil Rel % 0 Not Estab. % [facility] Neutrophils Absolute 7.1(H) 1.4 - 7.0 x10E3/uL [facility] Lymphocytes Absolute 1.8 0.7 - 3.1 x10E3/uL [facility] Monocytes Absolute 0.8 0.1 - 0.9 x10E3/uL [facility] Eosinophils Absolute 0.1 0.0 - 0.4 x10E3/uL [facility] Basophils Absolute 0.0 0.0 - 0.2 x10E3/uL [facility] Immature Granulocyte Rel % 1 Not Estab. % [facility] Immature Grans Absolute 0.1 0.0 - 0.1 x10E3/uL [facility] Blood 02/07/2024 3:13 PM EDT 02/07/2024 Narrative [facility] ([facility]) - 02/08/2024 12:36 PM EDT Performed at: 01 - [facility] [address] [place], [place] [id number] Licensed Customs Broker: Kristopher Murry PhD, Phone: [phone] us Orlando Louie MD LAB BLOOD ORDERABLES [facility] al Result [facility] ([facility]) [address] [place] [address], [place] [phone] [facility] [address] [place] [address], [place] [phone] from Last 3 Months or Most Recently Relevant to Health Maintenance [place] [address] [place] [address] EMPLOYEE Advance Directives * CPR (Attempt to Resuscitate) (Latest Code Status on File) Date Activated Date Inactivated Comments 08/14/2024 9:09 PM 08/16/2024 3:49 PM Question Answer Comments Code Status (Patient has no pulse and is not breathing): CPR (Attempt to Resuscitate) Medical Interventions (Patie nt has pulse or is breathing): Full * CPR (Attempt to Resuscitate) Date Activated Date Inactivated Comments 08/14/2024 9:36 AM 08/14/2024 9:09 PM Question Answer Comments Code Status (Patient has no pulse and is not breathing): CPR (Attempt to Resuscitate) Medical Interventions (Patie nt has pulse or is breathing): Full Support Level Of Support Discussed With: Patient * CPR (Attempt to Resuscitate) Date Activated Date Inactivated Comments 08/13/2024 6:42 PM 08/14/2024 9:02 AM Question Answer Comments Code Status (Patient has no pulse and is not breathing): CPR (Attempt to Resuscitate) Medical Interventions (Patie nt has pulse or is breathing): Full Support Level Of Support Discussed With: Patient Care Teams Steel Erector Apprentice Relationship Specialty Start Date End Date Edin Ackerman MD [address] [place] [address] PCP - General Emergency Medicine 07/09/24
--- NOTE | 2025-04-26 11:59 | ED_ITS ---
Discharge Plan Disposition Patient Disposition: Home, Self-Care Condition: Good Prescriptions Prescriptions: New dicyclomine 20 mg tablet 20 mg PO QID PRN (Reason: abdominal pain) Qty: 30 0RF No Action PNV no.[id number]-[id number] acid 28 mg iron- 800 mcg tablet 1 tab PO DAILY Qty: 90 3RF fluoxetine 20 mg capsule See Rx Instructions .ROUTE .COMPLEX Qty: 90 0RF Dose Instruction: TAKE 1 CAPSULE BY MOUTH DAILY Rx Instructions: TAKE 1 CAPSULE BY MOUTH DAILY needs an appt before anymore refills fluticasone propionate [Flonase Allergy Relief] 50 mcg/actuation spray,suspension 1 spray intranasal DAILY Qty: 16 0RF Rx Instructions: administer into each nostril promethazine 25 mg tablet 25 mg PO Q6H PRN (Reason: nausea and vomiting) Qty: 12 1RF Referrals Follow up/Referrals: Slime Villalobos PA [Primary Care Provider, Medical] - See instructions Activity Restrictions/Add. Instructions Additional Instructions/Restrictions: Follow-up with your solution director regarding a thickened endometrium measuring 7.6 mm today with echogenic foci in the endometrium. Stay well-hydrated. [place] diet, advance as tolerated. Please follow up with your primary care provider in 2-3 days. Please return to ED if your symptoms worsen, change in location, change in severity, new symptoms develop or if you become concerned for your health. Clinical Impressions Clinical Impression: Abdominal pain, LLQ, Endometrial thickening on ultrasound, Diarrhea Instructions Patient Instructions: DI for Acute Abdominal Pain Print Language Print Language: Polish Discharge ED Provider: Jax Barrientos Adult HPI General Chief complaint: Abdominal Pain Stated complaint: Sharp Pain Left side abd x 3 days Time Seen by Provider: 04/26/25 11:59 Mode of Arrival: Ambulatory Source of Information: Patient Description of Symptoms (Recalled from ER Triage Doc. by RN): patient complaining of left lower quadrant pressure that has gradually gotten worse over the last 3 days, unable to see PCP. States she had one episode of diarrhea this morning. Denies vomiting. History of Present Illness HPI narrative: Patient is a 24-year-old female with history of anxiety. She presents today due to concerns for left lower quadrant abdominal pain that began about 4 days ago, was initially intermittent in nature, but now is persistent. It is sharp and stabbing in nature and does not radiate and has not moved. She denies any dysuria hematuria vaginal pain vaginal bleeding vaginal discharge. Denies any history of STIs. She denies any fevers nausea vomiting. Does report some nonbloody diarrhea that began yesterday. Related Data Previous Rx's ?Medication ?Instructions ?Recorded fluticasone propionate 50 1 spray intranasal DAILY #16 grams 12/27/22 mcg/actuation nasal spray,suspension (Flonase Allergy Relief) vitamins no.121-iron 28 1 tab PO DAILY #90 ta bs 09/08/23 mg-folic acid 800 mcg tablet fluoxetine 20 mg capsule See Rx Instructions .Route 1 11/21/23 .COMPLEX #90 caps promethazine 25 mg tablet 25 mg PO Q6H PRN nausea and 12/24/24 vomiting #12 tabs dicyclomine 20 mg tablet 20 mg PO QID PRN abdominal p ain 04/26/25 #30 tabs Allergies Allergy/AdvReac Type Severity Reaction Status Date / Time No Known Allergies Allergy Verified 04/26/25 11:46 [facility] Disclaimer: The information contained in this section may have been updated after the patient was seen, as this information can be updated by other users. Medical History Anxiety Depression Migraine Social History Smoking Status: Light tobacco smoker alcohol intake: current alcohol intake frequency: a few times a week substance use type: denies use current occupational status: employed Travel in the last 8 weeks?: None Have you lived/traveled outside US in past 30 days?: No Contact w/someone who lives/traveled outside US past 30 days?: No Exposure to someone with infectious disease in past 14 days?: No Do you have a fever (greater than 100.4 F or 38 C)?: No Have you tested positive for COVID-19?: No Exposed to someone with COVID-19 in past 14 days?: No Do you have a sore throat?: No Do you have a cough?: No Do you have any weakness?: No Do you have any diarrhea?: No Are you experiencing any unusual bleeding?: No Do you have any muscle aches/pain?: No Do you have any abdominal pain?: Yes Are you experiencing loss of taste or smell?: No Other Medical History Have you received the Pneumonia Vaccine: No ROS Obtained: Yes All systems reviewed & no additional complaints except as documented Physical Exam General General appearance: alert and in no apparent distress Head Head exam: atraumatic and normocephalic Eye Eye exam: Present PERRL and EOMI ENT ENT exam: Present normal oropharynx Neck Neck exam: Present full ROM and trachea midline Chest Chest inspection: Present symmetric chest wall rise Respiratory Respiratory exam: Present normal lung sounds bilaterally; Absent stridor Cardiovascular Cardiovascular exam: Present regular rate and normal rhythm Abdominal Exam Abdominal exam: Present soft and tenderness (Left lower quadrant adnexal); Absent distention Extremities Exam Extremities exam: Present full ROM Neurological Exam Neurological exam: Present alert and oriented X3 Psychiatric Psychiatric exam: Present normal mood Skin Skin exam: Present warm and dry Medical Decision Making Medical Records Screening: Per USPSTF and CDC recommendations, given the prevalence of disease in our region, it is our hospital?s policy to screen for HIV and viral Hepatitis for all patients aged 18 and over and those with ongoing risk factors. Ignacio Inquiry Pt receiving controlled substance: No Vital Signs: 04/26/25 11:39 04/26/25 11:40 04/26/25 11:45 Temperature 98.1 F Temperature Source Oral Pulse Rate 91 H 79 Pulse Rate [Right Brachial] 80 Respiratory Rate 16 Blood Pressure 115/82 113/77 Blood Pressure [Right Arm] 115/82 Blood Pressure Mean [Right Arm] 93 Blood Pressure Source Blood Pressure Source [Right Arm] Automatic Cuff Blood Pressure Position Blood Pressure Position [Right Arm] Sitting 02 Sat by Pulse Oximetry 99 99 100 Oxygen Delivery Method Room Air 04/26/25 15:22 Temperature 98.7 F Temperature Source Oral Pulse Rate 82 Pulse Rate [Right Brachial] Respiratory Rate 20 Blood Pressure 113/77 Blood Pressure [Right Arm] Blood Pressure Mean [Right Arm] Blood Pressure Source Automatic Cuff Blood Pressure Source [Right Arm] Blood Pressure Position Supine Blood Pressure Position [Right Arm] 02 Sat by Pulse Oximetry Oxygen Delivery Method Room Air Lab Data Lab Results 04/26/25 11:53: Serum HCG, Qual Negative 04/26/25 12:29: Urine Color Yellow, Urine Appearance Clear, Urine pH 6.5, Ur Specific [place] <= 1.005, Urine Protein Negative, Urine Glucose (UA) Negative, Urine Ketones Negative, Urine Blood Negative, Urine Nitrate Negative, Urine Bilirubin Negative, Urine Urobilinogen 0.2, Ur Leukocyte Esterase Negative, Urine RBC None, Urine WBC None, Ur Squamous Epith Cells 3-5, Urine Bacteria Trace 04/26/25 12:40: WBC 6.7, RBC 5.06, Hgb 14.9, Hct 45.7, MCV 90.3, MCH 29.4, MCHC 32.6, RDW 12.3, Plt Count 298, MPV 10.0, Neut % (Auto) 51.5, Lymph % (Auto) 35.6, [place] % (Auto) 7.1, Eos % (Auto) 4.5, Baso % (Auto) 0.9, Neut # (Auto) 3.5, Lymph # (Auto) 2.4, [place] # (Auto) 0.5, Eos # (Auto) 0.3, Baso # (Auto) 0.1, Sodium 137, Potassium 4.1, Chloride 105, Carbon Dioxide 23, Anion Gap 13.1, BUN 11, Creatinine 0.60, Estimated Creat Clear 173, Estimated GFR 121, Est GFR ( Amer) 146, Glucose 80, Lactate 1.8, Calcium 10.0, Total Bilirubin 0.6, AST 29, ALT 23, Alkaline Phosphatase 65, Total Protein 8.2, Albumin 4.5, G lobulin 3.7 H, Albumin/Globulin Ratio 1.2, Lipase 56 04/26/25 12:40 04/26/25 12:40 Orders (Tests/Meds): ED MEDICATIONS Discontinued Medications Generic Name Dose Route Start Last Admin Trade Name Freq PRN Reason Stop Dose Admin Acetaminophen 1,000 mg 04/26/25 12:08 04/26/25 12:19 Acetaminophen 500mg Tab PO 04/26/25 12:09 1,000 mg ONCE ONE Administration Ketorolac Tromethamine 15 mg 04/26/25 12:08 04/26/25 12:19 Ketorolac 30mg/Ml Vial IV 04/26/25 12:09 15 mg ONCE ONE Administration ORDERS Category Date Time Status US transvaginal Stat Exams 04/26/25 12:08 Completed XR KUB Stat Exams 04/26/25 12:08 Completed Complete Blood Count Auto Diff Stat Lab 04/26/25 12:40 Completed Comprehensive Metabolic Panel Stat Lab 04/26/25 12:40 Completed HCG Qualitative, Serum Stat Lab 04/26/25 11:53 Completed Lactic Acid Stat Lab 04/26/25 12:40 Completed Lipase Stat Lab 04/26/25 12:40 Completed UA [Urinalysis and Microscopic] Stat Lab 04/26/25 12:29 Completed Medical Decision Narrative: Patient is a 24-year-old female with no significant past medical history presenting today for left lower quadrant abdominal pain that began about 4 days ago. On exam, it is warm and well-perfused afebrile hemodynamically stable for pulses in all extremities. On exam, abdomen is soft, no peritoneal signs. Does have some moderate to reproducible tenderness focally in the left lower quadrant and adnexal region. Mild suprapubic tenderness. No flank tenderness. Differential diagnosis includes constipation, enterocolitis, mesenteric adenitis, ovarian torsion, less likely diverticulitis or intra-abdominal abscess. She has no abdominal surgical history. She is resting comfortably in the bed. Will treat symptomatically with Tylenol Toradol screening hematologic abdominal labs as well as transvaginal ultrasound to rule out ovarian torsion. Ultrasound independently debrided by myself demonstrate no evidence of torsion, radiologist read agrees, but does remark upon a thickened endometrium and some heterogeneous material within the uterus. It is possible that patient is beginning her menstrual cycle again, she will be given gynecology follow-up outpatient to discuss these findings, which she is having no vaginal bleeding or vaginal discharge, low suspicion for any infection. No concerning history for tubo-ovarian abscess or the like. Her abdominal exam is overall reassuring with only mild pain. I have a higher suspicion for enterocolitis given patient's recent onset of diarrhea that is nonbloody. She also has a family history of IBS, could be early onset of that. However, she is tolerating good oral intake here and her pain is well-controlled. She is offered further medication here, but declines. I considered CT, but deferred given risks outweigh benefits. There is a distant possibility of diverticulitis, although patient does not have risk factors for it and has never had this before, nevertheless, will tell her to start with clear liquid diet and advance as tolerated. Strict return precautions are discussed all questions answered patient is reliable and amenable to plan and follow-up outpatient. Critical Care Critical Care Time Critical Care Time: No
--- NOTE | 2025-04-26 12:08 | XR_ITS ---
FINAL REPORT CLINICAL HISTORY: Left lower quadrant abd pain COMPARISON: None FINDINGS: A single view of the abdomen was obtained. The visualized intestinal gas pattern appears unremarkable without evidence to suggest obstruction. Left pelvic calcifications are present compatible with phleboliths. There is no radiopaque renal stone identified. IMPRESSION: No acute findings. Reviewed, Interpreted and Dictated by Usama Sanchez MD Transcribed by Zaria Yo Authenticated and [facility]
--- NOTE | 2025-04-26 12:08 | US_ITS ---
PROCEDURE INFORMATION: Exam: US Duplex Artery or Vein of the Abdominal and/or Reproductive Organs, Limited Ovaries Exam date and time: 04/26/2025 12:37 PM Clinical indication: Pelvic pain; Additional info: L adnexal pain intermittent, eval torsion TECHNIQUE: Imaging protocol: Real-time duplex ultrasound scan of the arterial or venous flow with mendosa scale, color Doppler flow and spectral waveform analysis with image documentation. Limited duplex exam focused on the ovaries. Duplex exam was performed to evaluate for torsion and other vascular conditions. COMPARISON: No relevant prior studies available. FINDINGS: Right ovary/adnexa: Normal arterial or venous Doppler waveforms in the ovary. No ovarian torsion. Peak systolic velocity right ovary 12 cm/sec. Left ovary/adnexa: Normal arterial or venous Doppler waveforms in the ovary. No ovarian torsion. Peak systolic velocity left ovary 12 cm/sec IMPRESSION: Normal duplex of the ovaries. No evidence of ovarian torsion. PROCEDURE INFORMATION: Exam: US Pelvis, Transvaginal, Non-Obstetric Exam date and time: 04/26/2025 12:37 PM Age: 24 years old Clinical indication: Pelvic pain; Additional info: L adnexal pain intermittent, eval torsion TECHNIQUE: Imaging protocol: Real-time transvaginal pelvic (non-obstetric) ultrasound with image documentation. Transvaginal imaging was used for better evaluation of the endometrium, adnexa, and/or cervix. COMPARISON: No relevant prior studies available. FINDINGS: Uterus: Endometrium measures 7.6 mm. Uterus measures 8.3 x 3.3 x 4.7 cm total volume 68.6 cc. Echogenic foci in the endometrium. Unknown etiology. Right ovary/adnexa: Right ovary 2.8 x 2.2 x 1.5 cm total volume 4.7 cc. Peak systolic velocity right ovary 12 cm/sec Left ovary/adnexa: Left ovary 2.8 x 1.4 x 1.7 cm total volume 3.5 cc. Peak systolic velocity left ovary 12 cm/sec Urinary bladder: Urinary bladder is limited. Intraperitoneal space: No free fluid. IMPRESSION: Endometrium measures 7.6 mm Echogenic foci in the endometrium. Unknown etiology.
[2025-04-26] MEDS: ACETAMINOPHEN 500MG TAB 1000 MG PO (12:19)
[2025-04-26] MEDS: KETOROLAC 30MG/ML VIAL 15 MG IV (12:19)
[2025-04-26 12:42] LABS: Microscopic, Urine URINE MICROSCOPIC (MICROSCOPIC)
[2025-04-26 12:43] LABS: HCG Qualitative, Serum Negative (Negative)
--- NOTE | 2025-04-26 12:43 | PC.NURSE ---
Pt out of room with US
[2025-04-26 12:44] LABS: Bilirubin,Urine Negative (Negative); Color,Urine YELLOW (Yellow); Glucose,Urine (UA) Negative (Negative); Ketones,Urine Negative (Negative); Leukocyte Esterase,Urine Negative (Negative); PH,Urine 6.5 (5.0-8.5); Protein,Urine Negative (Negative); Specific Gravity, Urine <= 1.005 (1.005-1.030); Urobilinogen,Urine 0.2 EU/dl (0.2)
[2025-04-26 13:00] LABS: Albumin Level 4.5 g/dl (3.5-5.0); Chloride 105 mmol/L (98-107); Sodium 137 mmol/L (136-145)
[2025-04-26 13:01] LABS: Potassium 4.1 mmoL/L (3.5-5.1)
[2025-04-26 13:03] LABS: Alanine Aminotransferase 23 U/L (12-78); Albumin/Globulin Ratio 1.2 (1.1-1.8); Alkaline Phosphatase 65 U/L (38-126); Anion Gap 13.1 mEq/L (5-15); Aspartate Amino Transferase 29 U/L (14-36); Bilirubin,Total 0.6 mg/dl (0.2-1.3); Blood Urea Nitrogen 11 mg/dl (7-17); Carbon Dioxide 23 mmol/L (22.0-30.0); Creatinine Clearance Estimated 173 mL/min (50-200); Creatinine,Serum 0.60 mg/dl (0.52-1.04); Estimated Glomerular Filt Rate 121 ml/min (>60); GFR (African American) 146 ML/MIN (>60); Globulin 3.7 g/dL (1.3-3.2); Total Protein,Serum 8.2 g/dl (6.3-8.2)
[2025-04-26 13:04] LABS: Calcium 10.0 mg/dl (8.4-10.2); Glucose 80 mg/dl (74-100); Lipase 56 U/L (23-300)
[2025-04-26 13:07] LABS: Hematocrit 45.7 % (37.0-47.0); Hemoglobin 14.9 g/dL (12.2-16.2); Immature Granulocytes % 0.4 %; Mean Corpuscular HGB Conc 32.6 g/dL (31.8-35.4); Mean Corpuscular Hemoglobin 29.4 pg (27.0-31.2); Mean Corpuscular Volume 90.3 fl (81-99); Nucleated Red Blood Cells % 0 %; Platelet Count 298 K/mm3 (142-424); Red Blood Count 5.06 M/mm3 (4.20-5.40); Red Cell Distribution Width-SD 40.0 fL; White Blood Count 6.7 K/mm3 (4.8-10.8)
[2025-04-26 13:13] LABS: Bacteria,Urine Trace /lpf
[2025-04-26 15:22] VITALS: BP 113/77; PULSE 82; RESP 20; TEMP 37.1; O2SAT 99
== END 2025-04-26 15:25 | disposition home or self-care (01) ==
PROVIDERS: Emergency Provider Emergency Medicine; PCP Physician Assistant
DX: R10.32 Left lower quadrant pain (principal); R93.89 Abnormal findings on diagnostic imaging of other specified body structures; R19.7 Diarrhea, unspecified
CPT/HCPCS: 36415; 74018; 76830; 80053; 81001; 83605; 83690; 84703; 85025; 96374; 99285; J1885